=== PATIENT | female | born 1970 | race Caucasian/White ===

== ENCOUNTER 2020-03-11 00:20 | Outpatient (CLI) | payer OTHER, SELFPAY ==
[2020-03-11 18:05] LABS: SARS-CoV-2 RNA PCR Negative
== END 2020-03-11 00:21 | disposition home or self-care (01) ==
LOC: ANHCOVIDDT 00:20
PROVIDERS: PCP Emergency Medicine; Visit Provider Orthopaedic Surgery
DX: Z01.812 Encounter for preprocedural laboratory examination (principal); Z11.59 Encounter for screening for other viral diseases
CPT/HCPCS: 87635; C9803; U0003

== ENCOUNTER 2020-03-14 02:49 | Day surgery (SDC) | payer OTHER, SELFPAY ==
[2020-02-29 17:50] VITALS: BMI 41.1
[2020-03-14] VITALS (8 sets, daily range): BP systolic 97–143; BP diastolic 48–80; PULSE 55–75; RESP 12–18; TEMP 36.1–36.4; O2SAT 98–99
--- NOTE | 2020-03-14 08:56 | WPDANESEPPF ---
Anes - Initial Pre Proc Eval Procedure: Operation Date: 03/14/20 10:30 Proposed Procedures p Debridement Right Elbow Lateral Epicondyle - Enoch Ruggiero MD Date/Time: 03/14/20 08:56 Surgeon: Enoch Ruggiero MD Pre Op Diagnosis: rt elbow lateral epicondylitis Patient Data Age: 49 Gender: F Height: 5 ft 2 in Weight: 102.06 kg Allergies Allergy/AdvReac Type Severity Reaction Status Date / Time erythromycin base Allergy Severe Hives Verified 03/01/20 09:00 Home Medications Medication Instructions Recorded Confirmed Type fluoxetine 40 mg capsule 40 mg PO QPM #90 cap 01/12/20 03/01/20 Rx metoprolol succinate 25 mg 25 mg PO QPM #90 tablet 01/12/20 03/01/20 Rx tablet,extended release 24 hr rosuvastatin 10 mg tablet See Rx Instructions .ROUTE 02/09/20 03/01/20 Rx .COMPLEX #30 tablet Patient hx anesthesia problems: none Family hx anesthesia problems: none PMFSH Past Medical History Medical History Chronic headaches Depression Depression Fatigue Plantar fasciitis of right foot surgery 2019 Screening cholesterol level Surgical History Surgical History History of ankle surgery (~2007) History of hysterectomy (~2002) History of shoulder surgery (~2016) Previous section 1997 & 1998 Family History Family History Father Family history of malignant neoplasm Family history of lung cancer Family history of lymphoma Family history of malignant neoplasm of urinary bladder Diabetes mellitus Hypertension Sibling Family history of malignant neoplasm of cervix Family history of Hodgkin's lymphoma Breast cancer Grandparent Cerebrovascular accident Breast cancer Other Family history of cardiovascular disease Social History Social History Smoking status: Light tobacco smoker Tobacco type: cigarettes Second hand tobacco smoke exposure: No Smoking end date: 09/01/10 Additional smoking assessment comments: Smoked on and off socially since high school but completely quit in 2009. 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 Questions were solicited and answers provided to the satisfaction of the patient/family/POA.
[2020-03-14] MEDS: KETOROLAC 15 MG/ML VIAL (*BKC) IV PUSH (09:15)
[2020-03-14] MEDS: ACETAMINOPHEN 500 MG TABLET 1000 MG PO (09:15)
--- NOTE | 2020-03-14 10:20 | WPDHPUPDATE1 ---
History and Physical Update Update Date/Time: 03/14/20 10:20 History and Physical has been reviewed, including an updated exam of the patient. There are NO changes in the patient's condition. Risks, benefits, and alternatives have been discussed and questions answered. Patient agrees to proceed with procedure.
[2020-03-14] MEDS: ceFAZolin 2 GM/D5W 50 ML 2 GM/50 ML BAG IVPB (10:46)
[2020-03-14] MEDS: BUPIVACAINE/EPINEPHRINE 0.5% 10 ML VIAL INFILTRATE (11:17)
[2020-03-14] MEDS: LACTATED RINGERS 1,000 ML 30 ML IV CONT (11:35)
--- NOTE | 2020-03-14 11:45 | PM.PROC ---
Procedure Note - Detailed Date of procedure: 03/14/20 Pre-op diagnosis: rt elbow lateral epicondylitis Post-op diagnosis: same Procedure performed: Debridement right lateral epicondyle with partial epicondylectomy Description of procedure: The patient was identified and proper side identified. She was taken to the operating room and transferred to the or table placing her supine taking care to pad her torso and extremities. After general anesthetic induction and intubation, a nonsterile tourniquet was placed high on the right arm. Right upper extremity was prepped and draped in the usual sterile fashion. Several cc of 0.5% Marcaine and epinephrine solution was injected into the subcutaneous tissue in over the right lateral epicondyle. The extremity was exsanguinated tourniquet was inflated to 250 mmHg remaining up for approximately 23 minutes. Longitudinal incision was made over the tendinous origin and subcutaneous tissue sharply dissected down to the epicondyle. The common extensor origin was released off the epicondyle and then debrided removing any degenerative tissue. Prominent portion of the epicondyle was removed with a rongeur. The wound was irrigated with sterile antibiotic solution. Tendon edges were reapproximated [id number] with 3 0 Monocryl suture. The deeper layers the subcu reapproximated with 3 0 Monocryl. Skin reapproximated with 3 0 V lock and tissue adhesive. Sterile dressing was applied. Tourniquet is released. She tolerated the procedure well. She was awakened extubated taken to recovery area in stable condition. There were no known intraoperative complications. Estimated blood loss is negligible. Surgeon: Enoch Ruggiero MD Estimated blood loss (mL): 3 Tourniquet time (min): 23 Drains: No Packing: No Pathology: none sent Complications: No immediate complications Condition: stable Disposition: PACU
== END 2020-03-14 13:12 | disposition home or self-care (01) ==
PROVIDERS: PCP Emergency Medicine; Visit Provider Orthopaedic Surgery
PROC: (CPT 24359; principal; 2020-03-14 10:30)
DX: M77.11 Lateral epicondylitis, right elbow (principal); F32.9 Major depressive disorder, single episode, unspecified; Z87.891 Personal history of nicotine dependence; E66.01 Morbid (severe) obesity due to excess calories; Z68.41 Body mass index [BMI] 40.0-44.9, adult
CPT/HCPCS: 24359; 87635; A9270; C9803; J0690; J1100; J1885; J2250; J2405; J2704; J3010; J7120; U0003

== ENCOUNTER 2020-05-30 15:33 | Outpatient (CLI) | payer OTHER, SELFPAY ==
--- NOTE | ~2020-05-30 | MM_ITS ---
EXAMINATION: MM screening kaycee BI w dinora HISTORY: Screening mammogram, family history of breast cancer in her sister. TECHNIQUE: Craniocaudal and mediolateral oblique 3-D tomosynthesis images were obtained and synthetic 2-D images were generated. CAD analysis was submitted and interpreted. COMPARISON: 10/16/2018, 10/14/2018, 10/04/2017, 06/17/2013, 06/09/2013 BREAST PARENCHYMAL COMPOSITION: There are scattered areas of fibroglandular density. FINDINGS: There is no evidence of suspicious mass, calcification, or architectural distortion to sugg est malignancy in either breast. There has been no suspicious interval change. IMPRESSION: 1. No mammographic evidence of malignancy. 2. Recommend routine screening mammography in one year. BI-RADS Category 1: Negative Reviewed, dictated and finalized at location A.
== END 2020-05-30 15:34 | disposition home or self-care (01) ==
LOC: ANHIMG 15:36
PROVIDERS: PCP Emergency Medicine; Visit Provider Emergency Medicine
DX: Z12.31 Encounter for screening mammogram for malignant neoplasm of breast (principal)
CPT/HCPCS: 77063; 77067

== ENCOUNTER 2020-11-18 08:17 | Outpatient (CLI) | payer OTHER, SELFPAY | END 2020-11-18 08:18 | disposition home or self-care (01) | LOC: ANHCOVIDVC 08:17 | PROVIDERS: PCP Emergency Medicine | DX: Z23 Encounter for immunization (principal) | CPT/HCPCS: 0001A; 91300 ==

== ENCOUNTER 2020-12-09 08:14 | Outpatient (CLI) | payer OTHER, SELFPAY | END 2020-12-09 08:15 | disposition home or self-care (01) | LOC: ANHCOVIDVC 08:14 | PROVIDERS: PCP Emergency Medicine | DX: Z23 Encounter for immunization (principal) | CPT/HCPCS: 0002A; 91300 ==

== ENCOUNTER 2021-02-28 11:40 | Outpatient (CLI) | payer OTHER, SELFPAY ==
--- NOTE | ~2021-02-28 | US_ITS ---
EXAMINATION: US venous doppler [facility] DATE: 02/28/2021 12:06 INDICATION: Left lower limb pain TECHNIQUE: Aguiar scale images without and with compression and Doppler images of the left lower extrem ity veins were obtained. COMPARISON: None FINDINGS: The left common femoral vein, profunda femoral vein, femoral vein, popliteal vein, peroneal trunk, posterior tibial veins, and greater saphenous vein are patent. A 3.4 cm Warner's cyst is noted . IMPRESSION: 1. Patent left lower extremity veins. No evidence of deep venous thrombosis. Reviewed, dictated and finalized at location B.
== END 2021-02-28 11:41 | disposition home or self-care (01) ==
LOC: ANHIMG 11:47
PROVIDERS: PCP Emergency Medicine; Visit Provider Emergency Medicine
DX: I73.9 Peripheral vascular disease, unspecified (principal); M79.605 Pain in left leg; R60.9 Edema, unspecified
CPT/HCPCS: 93971

== ENCOUNTER 2021-11-30 17:37 | Outpatient (CLI) | payer OTHER, SELFPAY ==
--- NOTE | ~2021-11-30 | MM_ITS ---
EXAMINATION: MM screening kaycee BI w dinora HISTORY: Screening mammogram TECHNIQUE: Craniocaudal and mediolateral oblique 3-D tomosynthesis images were obtained and synthetic 2-D images were generated. CAD analysis was submitted and interpreted. COMPARISON: 05/22/2020 bilateral screening mammogram October 16, 2018 diagnostic left mammogram and limited left breast ultrasound October 14, 2018, October 04, 2017 bilateral screening mammogram examinations BREAST PARENCHYMAL COMPOSITION: There are scattered areas of fibroglandular density. FINDINGS: There is no evidence of suspicious mass, calcification, or architectural distortion to sugg est malignancy in either breast. There has been no suspicious interval change. IMPRESSION: 1. No mammographic evidence of malignancy. 2. Recommend routine screening mammography in one year. BI-RADS Category 1: Negative Reviewed, dictated and finalized at location A.
== END 2021-11-30 17:38 | disposition home or self-care (01) ==
PROVIDERS: PCP Emergency Medicine; Visit Provider Emergency Medicine
DX: Z12.31 Encounter for screening mammogram for malignant neoplasm of breast (principal)
CPT/HCPCS: 77063; 77067

== ENCOUNTER 2022-08-30 08:55 | Emergency (ER) | payer OTHER, SELFPAY ==
--- NOTE | 2022-08-30 09:00 | ED.URI ---
HPI - URI/Sore Throat General Chief Complaint: Upper Respiratory Infection Stated Complaint: Sinus Time Seen by Provider: 08/30/22 09:10 Source: patient Mode of arrival: ambulatory Limitations: no limitations History of Present Illness HPI Narrative: Marta is a 52-year-old female patient presenting to clinic today with complaints of sinus congestion and drainage, body aches, chills, and sore throat x2 days. She reports No known fever. No known exposure to anybody with COVID, flu, or strep. Reports that she had COVID back in December and RSV in June. MD elicited complaint: sore throat and nasal congestion Related Data Allergies Allergy/AdvReac Type Severity Reaction Status Date / Time erythromycin base Allergy Severe Hives Verified 04/26/22 14:32 Review of Systems Review of Systems: Pertinent positives per HPI. Patient denies any fever, rash, headache, visual changes, dizziness, shortness of breath, chest pain, palpitations, nausea, vomiting, diarrhea, constipation, abdominal pain, or any urinary issues. [facility] Past Medical History Medical History Arthritis Arthritis of carpometacarpal (CMC) joint of right thumb BMI 39.0-39.9,adult Body mass index [BMI] 36.0-36.9, adult (07/04/16) Carpal tunnel syndrome, bilateral Chronic back pain Chronic headaches Chronic neck pain Chronic shoulder pain Degenerative arthritis of knee, bilateral Depression Depression Disorder of skin and subcutaneous tissue Fatigue HTN (hypertension) Macromastia Other chronic pain Paresthesia of skin Plantar fasciitis of right foot surgery 2019 Surgical History Surgical History History of ankle surgery (~2007) left History of bladder surgery bladder mesh History of hysterectomy (~2002) 2003 History of laparoscopy for endometriosis History of shoulder surgery (~2016) right Lateral epicondylitis, right elbow debridement March 2020 Previous section 1997 & 1998 Family History Family History Father Family history of malignant neoplasm Family history of lung cancer Family history of lymphoma Family history of malignant neoplasm of urinary bladder Diabetes mellitus Hypertension Heart problem Sibling Family history of malignant neoplasm of cervix Family history of Hodgkin's lymphoma Breast cancer Diabetes mellitus Hypertension Depression with anxiety Grandparent Cerebrovascular accident Breast cancer Mother Hypertension Other Family history of cardiovascular disease Social History Social History Smoking status: Former smoker Tobacco type: cigarettes Second hand tobacco smoke exposure: No Smoking end date: 09/01/10 Additional smoking assessment comments: Smoked on and off socially since high school but completely quit in 2009. 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 There is no relevant family history pertinent to the patient complaint. Exam Narrative: General: Well-developed, well nourished, in no apparent distress Head: Normocephalic, atraumatic Eyes: Pupils equally round and reactive to light bilaterally, EOM intact, sclera and conjunctive clear, no discharge, lids normal Ears: TMs intact and clear, ear canals clear, no drainage, grossly hearing normal. Nose: Nares patent, clear nasal discharge, mild inflammation, no sinus tenderness. Mouth: Oral pharynx without lesions or masses, good dentition
[2022-08-30 09:08] VITALS: BP 146/90; PULSE 70; RESP 16; TEMP 36.8; O2SAT 99
== END 2022-08-30 09:48 | disposition home or self-care (01) ==
PROVIDERS: Emergency Provider Nurse Practitioner Family; PCP Emergency Medicine
DX: J06.9 Acute upper respiratory infection, unspecified (principal); B34.9 Viral infection, unspecified; J02.9 Acute pharyngitis, unspecified; Z20.822 Contact with and (suspected) exposure to COVID-19; Z87.891 Personal history of nicotine dependence; I10 Essential (primary) hypertension; M17.0 Bilateral primary osteoarthritis of knee; M18.11 Unilateral primary osteoarthritis of first carpometacarpal joint, right hand
CPT/HCPCS: 87426; 87804; 87880; 99213; C9803; G0463

== ENCOUNTER 2022-09-20 13:47 | Outpatient (CLI) | payer OTHER, SELFPAY ==
--- NOTE | ~2022-09-20 | CT_ITS ---
EXAMINATION: CT abdomen pelvis w con DATE: 09/20/2022 14:44 INDICATION: Left abdominal pain. TECHNIQUE: Computed tomography (CT) of the abdomen and pelvis was performed with 100 mL Omnipaque 350 intravenous contrast. Automated exposure control and iterative reconstruction technique were employe d. The dose-length product was 1352.88 mGy-cm. COMPARISON: None. FINDINGS: The visualized portions of the lung bases demonstrate mild atelectasis. No pleural effusion . The heart size is normal. No pericardial effusion. The liver, gallbladder, spleen, pancreas, adrena l glands, and kidneys are normal. There is fat stranding around an epiploic appendage of proximal sig moid colon, consistent with epiploic appendagitis. There are no dilated loops of bowel. The appendix is normal. There are no pathologically enlarged lymph nodes. There is no free intraperitoneal fluid. There is mild thoracic spondylosis and severe lower lumbar spondylosis. IMPRESSION: 1. Epiploic appendagitis of proximal sigmoid colon. Reviewed, dictated and finalized at location A. [employer] PA[employer] CLERK
[2022-09-20 14:38] LABS: Estimated Glomerular Filt Rate > 60
== END 2022-09-20 13:48 | disposition home or self-care (01) ==
PROVIDERS: PCP Emergency Medicine; Visit Provider Emergency Medicine
DX: R10.9 Unspecified abdominal pain (principal); K63.89 Other specified diseases of intestine
CPT/HCPCS: 74177; Q9967

== ENCOUNTER 2022-09-20 15:04 | Emergency (ER) | payer OTHER, SELFPAY ==
[2022-09-20 15:53] VITALS: BP 149/106; PULSE 61; RESP 20; TEMP 36.6; O2SAT 99
[2022-09-20 18:52] VITALS: BP 155/92; PULSE 68; RESP 20; O2SAT 99
[2022-09-20 19:29] LABS: Basophils Percent Auto 0.6 % (0.2-1.2); Eosinophils Absolute Auto 0.1 K/mm3 (0-0.3); Eosinophils Percent Auto 1.7 % (0-4.4); Hematocrit 40.4 % (37.0-47.0); Hemoglobin 13.5 g/dL (12.0-15.0); Immature Granulocyte Absolute 0.02 K/mm3 (0.00-0.031); Immature Granulocyte Percent A 0.3 % (0-0.5); Lymphocytes Absolute Auto 2.98 K/mm3 (0.9-3.2); Lymphocytes Percent Auto 42.4 % (18.3-44.2); Mean Corpuscular HGB Conc 33.4 g/dl (32-36); Mean Corpuscular Hemoglobin 29.2 pg (26-34); Mean Corpuscular Volume 87.4 fl (80-100); Mean Platelet Volume 10.1 fl (7.4-10.4); Monocytes Absolute Auto 0.5 K/mm3 (0.1-0.6); Monocytes Percent Auto 7.4 % (2.6-8.5); Neutrophils Absolute Auto 3.4 K/mm3 (1.3-6.7); Neutrophils Percent Auto 47.6 % (45.5-73.1); Platelet Count Result 282 k/mm3 (150-375); Red Blood Count 4.62 M/mm3 (4.2-5.4); Red Cell Distribution Width 12.9 % (11.5-14.5)
--- NOTE | 2022-09-20 19:31 | ED.ABDPAIN ---
HPI - Abdominal Pain General Chief Complaint: Abdominal Pain Stated Complaint: lower pelvic pain Time Seen by Provider: 09/20/22 18:55 Source: patient and old records reviewed Mode of arrival: ambulatory Limitations: no limitations History of Present Illness HPI narrative: Patient is a 52 y/o female who presents to the ED with c/o LLQ abdominal pain. Patient reports having pain since Saturday. The pain became worse on Saturday and has been fairly constant since then. Patient has been taking ibuprofen with some relief. She states the pain feels like a pressure, occasionally sharp with certain movements. Patient had an outpatient CT scan of her abdomen pelvis performed today and was contacted by her primary care doctor to come to the ED after seeing the results. Patient otherwise denies any other symptoms, denies fever, nausea, constipation, rectal bleeding, melena, chest pain, difficulty breathing. Related Data Allergies Allergy/AdvReac Type Severity Reaction Status Date / Time erythromycin base Allergy Severe Hives Verified 09/19/22 16:13 Review of Systems Review of Systems: CONSTITUTIONAL: Denies fever, chills, or sweats. CARDIOVASCULAR: Denies chest pain, palpitations, or edema. RESPIRATORY: Denies cough or dyspnea. GASTROINTESTINAL: See HPI. GENITOURINARY: Denies dysuria or hematuria. SKIN: Denies rash or itching. MUSCULOSKELETAL: Denies back pain, joint pain, or myalgia. All systems reviewed & are unremarkable except as noted in HPI and below PMFSH Past Medical History Medical History (Updated 09/20/22 @ 19:52 by Marj Burks PA-C) Arthritis Arthritis of carpometacarpal (CMC) joint of right thumb BMI 39.0-39.9,adult Body mass index [BMI] 36.0-36.9, adult (07/04/16) Carpal tunnel syndrome, bilateral Chronic back pain Chronic headaches Chronic neck pain Chronic shoulder pain Degenerative arthritis of knee, bilateral Depression Depression Disorder of skin and subcutaneous tissue Endometriosis Fatigue HTN (hypertension) Macromastia Other chronic pain Paresthesia of skin Plantar fasciitis of right foot surgery 2019 Surgical History Surgical History History of ankle surgery (~2007) left History of bladder surgery bladder mesh History of hysterectomy (~2002) 2003 History of laparoscopy for endometriosis History of shoulder surgery (~2017) right Lateral epicondylitis, right elbow debridement March 2020 Previous section 1997 & 1998 Family History Family History Father Family history of malignant neoplasm Family history of lung cancer Family history of lymphoma Family history of malignant neoplasm of urinary bladder Diabetes mellitus Hypertension Heart problem Sibling Family history of malignant neoplasm of cervix Family history of Hodgkin's lymphoma Breast cancer Diabetes mellitus Hypertension Depression with anxiety Grandparent Cerebrovascular accident Breast cancer Mother Hypertension Other Family history of cardiovascular disease Social History Social History Smoking status: Former smoker Tobacco type: cigarettes Second hand tobacco smoke exposure: No Smoking end date: 09/01/10 Additional smoking assessment comments: Smoked on and off socially since high school but completely quit in 2009. 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 HEAD: Normocephalic, atraumatic. NECK: Supple. No adenopathy, no masses. RESPIRATORY: Airway patent, respirations nonlabored. Clear to
[2022-09-20 19:41] LABS: Alanine Aminotransferase 29 U/L (6-35); Albumin Level 4.4 g/dL (3.5-5.1); Alkaline Phosphatase 67 U/L (38-126); Anion Gap 7 mmol/L (8-16); Aspartate Amino Transferase 31 U/L (14-36); Bilirubin,Total 1.2 mg/dL (0.2-1.3); Blood Urea Nitrogen 9 mg/dL (7-17); Calcium 9.3 mg/dL (8.4-10.2); Carbon Dioxide 29 mmol/L (22-30); Chloride 102 mmol/L (98-107); Estimated CRCL calculation 92 ml/min; Estimated Glomerular Filt Rate > 60; Glucose 88 mg/dL (65-110); Lipase 67 U/L (23-300); Potassium 4.1 mmol/L (3.4-5.0); Sodium 138 mmol/L (137-145)
[2022-09-20] MEDS: KETOROLAC 30 MG/ML VIAL (*BKC) IV PUSH (19:50)
[2022-09-20 20:33] VITALS: BP 133/71; PULSE 72; RESP 18; O2SAT 98
== END 2022-09-20 20:34 | disposition home or self-care (01) ==
PROVIDERS: Emergency Medicine; Emergency Provider Physician Assistant; PCP Emergency Medicine
DX: K63.89 Other specified diseases of intestine (principal); I10 Essential (primary) hypertension; M19.90 Unspecified osteoarthritis, unspecified site; M18.9 Osteoarthritis of first carpometacarpal joint, unspecified; M17.0 Bilateral primary osteoarthritis of knee; N80.9 Endometriosis, unspecified; Z90.710 Acquired absence of both cervix and uterus; Z87.891 Personal history of nicotine dependence
CPT/HCPCS: 36415; 74177; 80053; 83690; 85025; 96374; 99284; J1885; Q9967

== ENCOUNTER 2023-02-06 09:30 | Outpatient (CLI) | payer OTHER, SELFPAY ==
--- NOTE | 2023-02-06 10:16 | EST_ITS ---
Patient Info Name: Marta Piper Age: 52 years : 1970 Gender: Female Ht: 62 in Wt: 225 lbs BSA: 2.17 m2 HR: 65 bpm BP: 133 / 79 mmHg Heart Rhythm: Sinus Rhythm Exam Date: 02/06/2023 10:25 AM Exam Location: [facility] Stress Patient Status: Outpatient Admit Date: 02/06/2023 Staff Ordering Physician: Guido Tillman MD Attending Provider: Guido Tillman MD Exercise Technologist: Marcy Fatima CT Exercise Physician: Amos Rand DO Exam Type: CA stress test treadmill Study Info Indications R06.09 - Other forms of dyspnea A treadmill exercise stress test was performed. Summary 1. 1. Negative Addi exercise stress test for ischemic ST changes by ECG criteria. 2. 2. Good functional capacity, achieving 8.9 METs of workload. 3. 3. Appropriate HR response to exercise. 4. 4. Appropriate HR recovery at 1 minute post exercise. 5. 5. No imaging with stress testing. 6. 6. Patient informed of the above results. Protocol: Addi Stress ECG Details Stage: REST Duration (min): 3 min : 2 sec Speed (mph): 0.0 Grade (%): 0 HR (bpm): 75 SBP (mmHg): 133 DBP (mmHg): 79 METS: --- Stage: REST Duration (min): 6 min : 41 sec Speed (mph): 0.0 Grade (%): 0 HR (bpm): 75 SBP (mmHg): 133 DBP (mmHg): 79 METS: --- Stage: STAGE 1 Duration (min): 1 min : 0 sec Speed (mph): 1.7 Grade (%): 10 HR (bpm): 106 SBP (mmHg): 133 DBP (mmHg): 79 METS: --- Stage: STAGE 1 Duration (min): 2 min : 0 sec Speed (mph): 1.7 Grade (%): 10 HR (bpm): 118 SBP (mmHg): 133 DBP (mmHg): 79 METS: --- Stage: STAGE 1 Duration (min): 3 min : 0 sec Speed (mph): 1.7 Grade (%): 10 HR (bpm): 123 SBP (mmHg): 132 DBP (mmHg): 69 METS: --- Stage: STAGE 2 Duration (min): 1 min : 0 sec Speed (mph): 2.5 Grade (%): 12 HR (bpm): 135 SBP (mmHg): 132 DBP (mmHg): 69 METS: --- Stage: STAGE 2 Duration (min): 2 min : 0 sec Speed (mph): 2.5 Grade (%): 12 HR (bpm): 141 SBP (mmHg): 161 DBP (mmHg): 73 METS: --- Stage: STAGE 2 Duration (min): 3 min : 0 sec Speed (mph): 2.5 Grade (%): 12 HR (bpm): 143 SBP (mmHg): 161 DBP (mmHg): 73 METS: --- Stage: STAGE 3 Duration (min): 1 min : 0 sec Speed (mph): 3.4 Grade (%): 14 HR (bpm): 150 SBP (mmHg): 162 DBP (mmHg): 65 METS: --- Stage: STAGE 3 Duration (min): 1 min : 0 sec Speed (mph): 3.4 Grade (%): 14 HR (bpm): 150 SBP (mmHg): 162 DBP (mmHg): 65 METS: --- Stage: RECOVERY Duration (min): 0 min : 59 sec Speed (mph): 0.0 Grade (%): 0 HR (bpm): 122 SBP (mmHg): 162 DBP (mmHg): 65 METS: --- Stage: RECOVERY Duration (min): 1 min : 59 sec Speed (mph): 0.0 Grade (%): 0 HR (bpm): 94 SBP (mmHg): 162 DBP (mmHg): 65 METS: --- Stage: RECOVERY Duration (min): 2 min : 59 sec Speed (mph): 0.0 Grade (%): 0 HR (bpm): 90 SBP (mmHg): 130 DBP (mmHg
== END 2023-02-06 09:31 | disposition home or self-care (01) ==
PROVIDERS: PCP Emergency Medicine; Visit Provider Emergency Medicine
DX: R06.09 Other forms of dyspnea (principal)
CPT/HCPCS: 93017

== ENCOUNTER 2023-03-04 00:25 | Day surgery (SDC) | payer OTHER, SELFPAY ==
[2023-02-26 14:46] VITALS: BMI 41.2
--- NOTE | 2023-02-26 14:47 | SUR.PREOP ---
Report to the Outpatient Waiting Room, entrance under the green pavilion located off [facility], at time _0600 on date _03/04/23 . Planned Procedure Time: _0730 . Time changes happen often and if your time is changed the preop area will call you the afternoon before. - You and your visitor will be asked to self-screen and do not enter if you have any COVID symptoms. - A mask is optional within the hospital at this time. Patients may have clear liquids (water, carbonated beverages, clear teas, apple juice) until 3 hours prior to surgery with a maximum of 20 ounces. - No food from midnight until time of surgery - Infants may have breast milk until 4 hours before surgery, formula 6 hours prior to surgery. - Children will be allowed to drink immediately following surgery. If applicable, please bring a bottle or sippy cup to assist with drinking. Juice, water, soda, and popsicles are readily available. For infants on formula, please bring formula the day of surgery. Pacifiers are allowed. Take the following medications with a SIP of water the morning of surgery: ___metoprolol,fluoxetine DO NOT STOP ANY OF YOUR OTHER PRESCRIPTION MEDICATIONS PRIOR TO SURGERY ?EXCEPT THE FOLLOWING Medications to discontinue per physician ____n/a Date to take last dose__n/a Please no make-up, nail indonesian, hairspray, perfume, deodorant, or body powder the day of surgery. No jewelry (including any body piercings) or valuables the day of surgery, leave them at home. Please take a shower or bath the night before, or the morning of, surgery with an antibacterial soap. Wear comfortable, loose fitting clothing. Children are encouraged to wear pajamas. - Jewelry must be removed prior to entering the operating room. Rings and piercings that are not removed may be cut off. - The hospital will not accept responsibility for valuables. - Please leave all valuables, including medications, at home the day of surgery. If you are going home after surgery, a licensed lifter driver must drive you home. - NO public transportation without another adult if you receive anesthesia. - We recommend that an adult stay with you for 24 hours following discharge. - We also recommend that you do not drive, make important decision, drink alcoholic beverages, or take any drugs that were not prescribed by your health care provider for at least 24 hours after your discharge time. For Pediatric surgeries, we recommend two adults accompany the child home. Follow any additional instructions given to you from your surgeon. If you or anyone in your household have experienced Covid symptoms in the past week, please notify your surgeon or the nurse liaison at the phone number below for possible testing. Telephone instructions given to _mc drew and asked if any additional questions and then verbalized understanding. Patient advised to call surgeon office or pre surgery nurse liaison [phone] if any additional questions.
[2023-03-04] VITALS (9 sets, daily range): BP systolic 104–125; BP diastolic 63–78; PULSE 68–76; RESP 12–20; TEMP 36.6–36.9; O2SAT 93–97
--- NOTE | ~2023-03-04 | XR_ITS ---
EXAMINATION: XR hand RT min 3V DATE: 03/04/2023 10:35 INDICATION: Unilateral primary osteoarthritis of first carpometacarpal joint. Postop. TECHNIQUE: 3 views of right hand were obtained. COMPARISON: Right hand radiographs 03/14/2022 FINDINGS: Trapezium is absent. No fracture. There is mild osteoarthritis of first metacarpophalangeal joint. IMPRESSION: 1. Trapezium resection. Reviewed, dictated and finalized at location A. IMPRESSION: 1. Trapezium resection.
[2023-03-04] MEDS: ACETAMINOPHEN 500 MG TABLET 1000 MG PO (07:40)
--- NOTE | 2023-03-04 07:41 | WPDANESEPPF ---
Anes - Initial Pre Proc Eval Procedure: Operation Date: 03/04/23 09:00 Proposed Procedures p Right Thumb Carpal Metacarpal Arthroplasty - Enoch Ruggiero MD Date/Time: 03/04/23 07:41 Surgeon: Enoch Ruggiero MD Pre Op Diagnosis: right thumb cmc arthritis Patient Data Age: 52 Gender: F Height: 1.57 m Weight: 106 kg Allergies Allergy/AdvReac Type Severity Reaction Status Date / Time erythromycin base Allergy Severe Hives Verified 03/04/23 07:10 Home Medications Medication Instructions Recorded Confirmed Type rosuvastatin 10 mg tablet See Rx Instructions .Route 09/04/22 02/27/23 Rx .COMPLEX #90 tabs metoprolol succinate 25 mg See Rx Instructions .Route 01/30/23 02/27/23 Rx tablet,extended release 24 hr .COMPLEX #90 tabs pantoprazole 40 mg tablet,delayed See Rx Instructions .Route 01/30/23 02/27/23 Rx release .COMPLEX #90 tabs fluoxetine 40 mg capsule See Rx Instructions .Route 02/14/23 02/27/23 Rx .COMPLEX #90 caps Patient hx anesthesia problems: none Family hx anesthesia problems: none Results Review: All pre-operative results and documents have been reviewed as part of the pre-operative evaluation. [facility] Past Medical History Medical History (Updated 03/04/23 @ 07:42 by Quirino Carey DO) Anxiety Arthritis Arthritis of carpometacarpal (CMC) joint of right thumb BMI 39.0-39.9,adult Body mass index [BMI] 36.0-36.9, adult (07/04/16) Carpal tunnel syndrome, bilateral Chronic back pain Chronic headaches Chronic neck pain Chronic shoulder pain Degenerative arthritis of knee, bilateral Depression Depression Disorder of skin and subcutaneous tissue Endometriosis Fatigue HTN (hypertension) Macromastia Other chronic pain Paresthesia of skin Plantar fasciitis of right foot surgery 2019 Surgical History Surgical History History of ankle surgery (~2007) left History of bladder surgery bladder mesh History of hysterectomy (~2002) 2002 History of laparoscopy for endometriosis History of shoulder surgery (~2016) right Lateral epicondylitis, right elbow debridement March 2020 Previous section 1997 & 1998 Family History Family History Father Family history of malignant neoplasm Family history of lung cancer Family history of lymphoma Family history of malignant neoplasm of urinary bladder Diabetes mellitus Hypertension Heart problem Sibling Family history of malignant neoplasm of cervix Family history of Hodgkin's lymphoma Breast cancer Diabetes mellitus Hypertension Depression with anxiety Grandparent Cerebrovascular accident Breast cancer Mother Hypertension Other Family history of cardiovascular disease Social History Social History Smoking status: Former smoker Tobacco type: cigarettes Second hand tobacco smoke exposure: No Smoking end date: 09/02/12 Additional smoking assessment comments: 1ppw x10 years Alcohol intake: current Drinks per week: 2 Alcohol use details: socially Substance use: never Lack of Transportation: No Lack of Food: Never True Current Housing: I Have Housing Concerned About Future Housing: No Difficulty Paying Gas/Electric Bills: No Difficulty Paying for Meds: No Currently Unemployed: No Education: Trade/Vocational Certificate Difficulty w/ Childcare or Family Care: No Living arrangements: with family Occupation/Education: occupation 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
[2023-03-04] MEDS: KETOROLAC 15 MG/ML VIAL (*BKC) IV PUSH (07:42)
[2023-03-04] MEDS: LACTATED RINGERS 1,000 ML 30 ML IV CONT (07:54)
--- NOTE | 2023-03-04 08:28 | WPDHPUPDATE1 ---
History and Physical Update Update Date/Time: 03/04/23 08:28 History and Physical has been reviewed, including an updated exam of the patient. There are NO changes in the patient's condition. Risks, benefits, and alternatives have been discussed and questions answered. Patient agrees to proceed with procedure.
[2023-03-04] MEDS: ceFAZolin 2 GM/D5W 50 ML 2 GM/50 ML BAG IVPB (08:47)
--- NOTE | 2023-03-04 08:49 | WPDANESPNB ---
Anes - Peripheral Nerve Block Date/Time: 03/04/23 08:49 I have discussed with the patient/family/POA the placement of a peripheral nerve block for post-operative pain management, including associated risks, benefits, complications, and side effects. Alternative methods of post-operative analgesia were detailed. Questions were solicited and answers provided to the satisfaction of the patient/family/POA. Time-Out: A pre-procedural Time-Out was completed immediately before starting the procedure and confirmed: Patient Identification, Site, Procedure, Patient Position and the Availability of Requisite Equipment. Clinical Indications: Acute post-operative pain management requested by the operative surgeon. Nerve Block Insertion Note Anes-nerve block: supraclavicular right Patient position: supine Skin prep: chlorhexidine Needle: 22 gauge, stimulating, insulated echogenic needle. Needle length: 50 mm Technique: ultrasound Injectate: bupivacaine 0.5% with epi 5 mcg/ml (30cc- no epi) Observations: tolerated well Complications: none Procedure start time:: 839 Procedure end time:: 844
--- NOTE | 2023-03-04 10:26 | P.OP_ITS ---
Procedure Note - Detailed Date of Procedure 03/04/23 Pre-op Diagnosis right thumb cmc arthritis Post-op Diagnosis Same Procedure Performed right thumb CMC suspension arthroplasty Surgeon Enoch Ruggiero MD Admissions Recruiter Petros Miner Anesthesia General and Regional Description of Procedure The patient was identified proper site identified. In the preop holding area the anesthesia team performed a right upper extremity block. She was then taken to the operating room transferred to the OR table placing her supine taking care to pad the torso and extremities. After general anesthetic induction and intubation, a nonsterile tourniquet was placed high on the right arm. Her right upper extremity was prepped and draped in usual sterile fashion. Extremity was exsanguinated and tourniquet was inflated to 250 mmHg remaining up for approximately 53 minutes. A longitudinal incision was made over the FCR tendon curving radially at the base of the thenar musculature. Subcutaneous tissue bluntly dissected protecting neurovascular structures. A slip of the APL which inserted into the thenar musculature was released and marked for later repair. The thenar musculature was elevated up off of the carpus and the trapezium identified. While protecting the FCR, a trapeziectomy was performed. The a ulnar-sided distally-based 8 cm slip of FCR was then developed hand used to create a sling weaving the tendon slip between the FCR tendon and the APL tendon securing it to itself with 3-0 Ethibond suture. The EPL tendon was advanced on itself and also secured with 3-0 Ethibond suture seating the sling in the trapeziectomy site. This allowed the thumb to sit very nicely in a position of function. The EPB tendon was then reefed also with 3-0 Ethibond taking up the slack in that structure. The wound was irrigated with sterile antibiotic solution. The wrist capsule and thenar musculature were tacked back down with 4-0 Monocryl. The slip of the EPL was reattached to the thenar musculature with 3-0 Ethibond. The subcutaneous tissue was reapproximated with 4-0 Monocryl and then skin with 4-0 Prolene running subcuticular stitch. Steri-Strips were applied. Sterile dressings applied and the tourniquet was released. Well-padded thumb spica splint was fashioned. The patient tolerated procedure well . She was awakened extubated and taken to recovery area in stable condition. There were no known intraoperative complications. Estimated blood loss was negligible. Perioperative antibiotics were administered. Estimated Blood Loss 5 Drains No Packing No Pathology None sent Complications No immediate complications Condition Stable Disposition PACU [facility] Billing Surgery - Charge Forward: Surgery Billing ([id number])
== END 2023-03-04 12:00 | disposition home or self-care (01) ==
PROVIDERS: PCP Emergency Medicine; Visit Provider Orthopaedic Surgery
PROC: (CPT 25447; principal; 2023-03-04 09:00)
DX: M18.11 Unilateral primary osteoarthritis of first carpometacarpal joint, right hand (principal); G89.18 Other acute postprocedural pain; I10 Essential (primary) hypertension; F32.A Depression, unspecified; F41.9 Anxiety disorder, unspecified; Z87.891 Personal history of nicotine dependence; E66.01 Morbid (severe) obesity due to excess calories; Z68.41 Body mass index [BMI] 40.0-44.9, adult
CPT/HCPCS: 25447; 64415; 73130; A9270; J0690; J1885; J2250; J2405; J2704; J3010; J7120

== ENCOUNTER 2023-04-17 07:30 | Outpatient (RCR) | payer OTHER, SELFPAY ==
--- NOTE | 2023-03-27 08:20 | OTOPEVAL1 ---
Assessment and note entered by Gab He, MOISES/Sander, CHT Evaluation Information Assessment Status Evaluation Diagnosis s/p right 1st CMC arthroplasty Onset 03/04/23 Subjective Information Patient is a right hand dominant female who underwent 1st CMC arthroplasty ~3 weeks ago. She went back to work 1 week after surgery. 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 Patient reports heavily favoring her left hand for ADLs, driving, etc. Reported Pain Level Pain Score 0: Self Report Additional Pain Score Comments Patient reports no pain . Describes it more as sore . Assessment OT Clinical Summary Patient referred to outpatient OT s/p right 1st CMC arthroplasty with a decline in right hand use secondary to limitations with weakness, stiffness, and post operative swelling. Skilled OT indicated for HEP instruction and progression, therapeutic exercise, therapeutic activities, modalities, and scar management education to facilitate optimal use of her right, dominant hand. Plan of Care Interventions Therapeutic Exercise,Manual Therapy,Neuro Re- education,Therapeutic Activities,Ultrasound, Paraffin OT Services Indicated Yes Treatment Frequency and 1x/week for 4 weeks Duration These treatments will address the objective and functional deficits as defined above. The patient will be advanced safely and appropriately in order for the patient to progress towards his/her prior level of function. Additional exercises will be introduced and as well as a comprehensive home exercise program upon discharge, if needed, ?to ensure carryover of functional gains achieved in the clinic. This treatment plan has been reviewed and agreement upon by the patient.
--- NOTE | 2023-03-27 08:20 | OPREHPOC ---
Outpatient Therapy Plan of Care This is a Multidisciplinary Plan of Care that may contain components documented by all disciplines (PT, OT, and ST.) OT Problem 1 OT Problem #1 Knowledge Deficit OT Goal 1 Goal 1. Patient to be independent with all instructed materials. Target Visit 5 OT Problem 2 OT Problem #2 Impaired Range of Motion OT Goal 1 Goal Increase active ROM of the right UE: 1. Patient to be able to touch the base of digit V with the thumb. 2. Patient to incresae wrist flexion to 55 degrees . Target Visit 5 OT Problem 3 OT Problem #3 Impaired Strength OT Goal 1 Goal Hold strengthening until 6 weeks post op: 1. Patient to be able to complete light baseball glove shaper/pinch strengthening with yellow theraputty x5 minutes without reports of pain. Target Visit 5
--- NOTE | 2023-04-17 09:11 | OTOPDC ---
Assessment and note entered by Gab He, OTR/L, CHT Evaluation Information Assessment Status Discharge Diagnosis s/p right 1st CMC arthroplasty Onset 03/04/23 Subjective Information Patient is a right hand dominant female who underwent 1st CMC arthroplasty 6 weeks ago. She reports feeling ready to go without her brace, feeling more confident to use her hand for light tasks. Reports feeling weak. Overall she is trying to get used to using this hand again, but reports she is not as hesitant to try to use it. Wrist, finger, and thumb ROM has progressed to functional limits. (R) guest house manager/pinch strengths as follows: - guest house manager 38.67 lbs - lateral 0.67 lbs. - palmar 1.5 lbs. - tip 1.67 lbs. (L) guest house manager/pinch strengths as follows: - guest house manager 58.33 lbs - lateral 8.33 lbs. - palmar 10.67 lbs. - tip 6.33 lbs. Reported Pain Level Pain Score 0: Self Report Additional Pain Score Comments Reports sore , not painful . Assessment OT Clinical Summary Patient referred to outpatient OT s/p right 1st CMC arthroplasty. She is 6 weeks post op and is progressing. She demonstrates return of functional ROM. Emissions Inspector/pinch measurements today are below functional limits. A guest house manager/pinch strengthening HEP as well as light wrist strengthening HEP have been issued. She demonstrates excellent understanding of all materials and is ready for discharge. No further skilled OT indicated at this time. Plan of Care OT Services Indicated No
== END 2023-04-17 11:59 | disposition home or self-care (01) ==
LOC: ANHOT 07:30
PROVIDERS: PCP Emergency Medicine; Visit Provider Orthopaedic Surgery
DX: Z48.89 Encounter for other specified surgical aftercare (principal); Z98.890 Other specified postprocedural states
CPT/HCPCS: 97018; 97110; 97140; 97165

== ENCOUNTER 2023-04-24 07:48 | Outpatient (CLI) | payer OTHER, SELFPAY ==
--- NOTE | ~2023-04-24 | MM_ITS ---
EXAMINATION: MM screening kaycee BI w dinora HISTORY: Screening mammogram TECHNIQUE: Craniocaudal and mediolateral oblique 3-D tomosynthesis images were obtained and synthetic 2-D images were generated. CAD analysis was submitted and interpreted. COMPARISON: 11/30/2021, 05/30/2020 bilateral screening mammogram examinations BREAST PARENCHYMAL COMPOSITION: There are scattered areas of fibroglandular density. FINDINGS: There is no evidence of suspicious mass, calcification, or architectural distortion to sugg est malignancy in either breast. There has been no suspicious interval change. IMPRESSION: 1. No mammographic evidence of malignancy. 2. Recommend routine screening mammography in one year. BI-RADS Category 1: Negative Reviewed, dictated and finalized at location A.
== END 2023-04-24 07:49 | disposition home or self-care (01) ==
LOC: ANHIMG 07:49
PROVIDERS: PCP Emergency Medicine; Visit Provider Emergency Medicine
DX: Z12.31 Encounter for screening mammogram for malignant neoplasm of breast (principal)
CPT/HCPCS: 77063; 77067

== ENCOUNTER 2023-11-18 02:44 | Day surgery (SDC) | payer OTHER, SELFPAY ==
[2023-11-08 11:28] VITALS: BMI 40.3
--- NOTE | 2023-11-15 09:12 | SUR.PREOP ---
Patient called regarding upcoming procedure. Voicemail left regarding appointment times.
[2023-11-18 06:53] VITALS: BP 127/68; PULSE 80; RESP 16; O2SAT 96
[2023-11-18] MEDS: LACTATED RINGERS 1,000 ML 150 ML IV CONT (07:03)
[2023-11-18 07:04] LABS: Glucose Point of Care 99 mg/dl (65-105)
--- NOTE | 2023-11-18 07:49 | PM.HPGS ---
History of Present Illness History of Present Illness Consent: Risks, benefits, and alternatives have been discussed and questions answered. Patient agrees to proceed with procedure. Chief complaint: neoplasm screening Narrative: Marta Piper is a 53 year old female here for first screening colonoscopy Review of Systems Review of Systems: All systems reviewed & are unremarkable except as noted in HPI and below PMFSH Past Medical History Medical History Anxiety Arthritis BMI 39.0-39.9,adult Body mass index [BMI] 36.0-36.9, adult (07/04/16) Carpal tunnel syndrome, bilateral Chronic back pain Chronic headaches Chronic neck pain Chronic shoulder pain Degenerative arthritis of knee, bilateral Depression Depression Disorder of skin and subcutaneous tissue Endometriosis Fatigue GERD (gastroesophageal reflux disease) HTN (hypertension) Hyperglycemia Macromastia Other chronic pain Paresthesia of skin Plantar fasciitis of right foot surgery 2019 Surgical History Surgical History Arthritis of carpometacarpal (CMC) joint of right thumb CMC suspension arthroplasty March 04, 2023 History of ankle surgery (~2007) left History of bladder surgery bladder mesh History of hysterectomy (~2002) 2002 History of laparoscopy for endometriosis History of shoulder surgery (~2016) right Lateral epicondylitis, right elbow debridement March 2020 Previous section 1997 & 1998 Family History Family History Father Family history of malignant neoplasm Family history of lung cancer Family history of lymphoma Family history of malignant neoplasm of urinary bladder Diabetes mellitus Hypertension Heart problem Sibling Family history of malignant neoplasm of cervix Family history of Hodgkin's lymphoma Breast cancer Diabetes mellitus Hypertension Depression with anxiety Grandparent Cerebrovascular accident Breast cancer Mother Hypertension Other Family history of cardiovascular disease Social History Social History Smoking packs per day: 0.5 Smoking cigarettes per day: 10.0 Years smoked: 10 Smoking pack-years: 5.00 Smoking status: Former smoker Tobacco type: cigarettes Second hand tobacco smoke exposure: No Smoking end date: 09/02/12 Additional smoking assessment comments: 1ppw x10 years Alcohol intake: current Drinks per week: 1 Alcohol use details: VANESSA Substance use: never Substance use type: does not use Do You Feel Safe in your Home?: Yes Lack of Transportation: No Lack of Food: Never True Current Housing: I Have Housing Concerned About Future Housing: No Difficulty Paying Gas/Electric Bills: No Difficulty Paying for Meds: No Currently Unemployed: No Education: Trade/Vocational Certificate Difficulty w/ Childcare or Family Care: No Living arrangements: with family Additional living arrangements comments: Occupation/Education: occupation 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 Gender identity (if verbalized by the patient): Female Sexual Orientation (if Verbalized by the Patient): Straight or Heterosexual Spiritual care concerns: No Meds Home Medications and Allergies Home Medications Medication Instructions Recorded Confirmed Type fluoxetine 40 mg capsule See Rx Instructions .Route 06/07/23 11/18/23 Rx .COMPLEX #90 caps metoprolol succinate 25 mg See Rx Instructions .Route 06/07/23 11/18/23 Rx tablet,extended release 24 hr .COMPLEX #90 tabs rosuvastatin 10 mg tablet See Rx Instructions .Route 06/07/23 11/18/23 Rx .COMPLEX #90 tabs cholecalciferol (vitamin D3) 1,250 1,250 mcg PO WEEKLY #12 caps 09/19/23 11/18/23 Rx mcg (50,000 unit) capsule p
[2023-11-18 08:04] VITALS: BP 113/69; PULSE 88; RESP 24; O2SAT 95
[2023-11-18 08:14] VITALS: BP 116/78; PULSE 74; RESP 17; O2SAT 95
[2023-11-18 08:30] VITALS: BP 114/71; PULSE 69; RESP 19; O2SAT 100
--- NOTE | 2023-11-19 14:50 | WPDANESEPPF ---
Anes - Initial Pre Proc Eval Procedure: Operation Date: 11/18/23 08:00 Proposed Procedures p Screening Colonoscopy - Carlin Khanna MD Date/Time: 11/19/23 14:50 Surgeon: Carlin Khanna MD Pre Op Diagnosis: neoplasm screening Patient Data Age: 53 Gender: F Height: 1.57 m Weight: 100.5 kg Last Vital Signs Pulse 69 11/18/23 08:30 Resp 19 11/18/23 08:30 BP 114/71 11/18/23 08:30 Pulse Ox 100 11/18/23 08:30 O2 Del Method Room Air 11/18/23 08:30 Allergies Allergy/AdvReac Type Severity Reaction Status Date / Time erythromycin base Allergy Severe Hives Verified 11/18/23 06:50 Home Medications Medication Instructions Recorded Confirmed Type fluoxetine 40 mg capsule See Rx Instructions .Route 06/07/23 11/18/23 Rx .COMPLEX #90 caps metoprolol succinate 25 mg See Rx Instructions .Route 06/07/23 11/18/23 Rx tablet,extended release 24 hr .COMPLEX #90 tabs rosuvastatin 10 mg tablet See Rx Instructions .Route 06/07/23 11/18/23 Rx .COMPLEX #90 tabs cholecalciferol (vitamin D3) 1,250 1,250 mcg PO WEEKLY #12 caps 09/19/23 11/18/23 Rx mcg (50,000 unit) capsule pantoprazole 40 mg tablet,delayed See Rx Instructions .Route 09/25/23 11/18/23 Rx release .COMPLEX #90 tabs metformin 500 mg tablet 250 mg PO BID #90 tabs 10/17/23 11/18/23 Rx Advanced Probiotic 2 ml PO DAILY 11/08/23 11/18/23 History multivitamin with minerals-folic 1 tablet PO DAILY 11/08/23 11/18/23 History acid 80 mcg chewable tablet (Centrum Adult 50 Plus) Patient hx anesthesia problems: none Family hx anesthesia problems: none Results Review: All pre-operative results and documents have been reviewed as part of the pre-operative evaluation. [facility] Past Medical History Medical History Anxiety Arthritis BMI 39.0-39.9,adult Body mass index [BMI] 36.0-36.9, adult (07/04/16) Carpal tunnel syndrome, bilateral Chronic back pain Chronic headaches Chronic neck pain Chronic shoulder pain Degenerative arthritis of knee, bilateral Depression Depression Disorder of skin and subcutaneous tissue Endometriosis Fatigue GERD (gastroesophageal reflux disease) HTN (hypertension) Hyperglycemia Macromastia Other chronic pain Paresthesia of skin Plantar fasciitis of right foot surgery 2019 Surgical History Surgical History Arthritis of carpometacarpal (CMC) joint of right thumb CMC suspension arthroplasty March 04, 2023 History of ankle surgery (~2007) left History of bladder surgery bladder mesh History of hysterectomy (~2002) 2002 History of laparoscopy for endometriosis History of shoulder surgery (~2016) right Lateral epicondylitis, right elbow debridement March 2020 Previous section 1997 & 1998 Family History Family History Father Family history of malignant neoplasm Family history of lung cancer Family history of lymphoma Family history of malignant neoplasm of urinary bladder Diabetes mellitus Hypertension Heart problem Sibling Family history of malignant neoplasm of cervix Family history of Hodgkin's lymphoma Breast cancer Diabetes mellitus Hypertension Depression with anxiety Grandparent Cerebrovascular accident Breast cancer Mother Hypertension Other Family history of cardiovascular disease Social History Social History Smoking packs per day: 0.5 Smoking cigarettes per day: 10.0 Years smoked: 10 Smoking pack-years: 5.00 Smoking status: Former smoker Tobacco type: cigarettes Second hand tobacco smoke exposure: No Smoking end date: 09/02/12 Additional smoking assessment comments: 1ppw x10 years Alcohol intake: current Drinks per week: 1 Alcohol use details: VANESSA Substance use: n
== END 2023-11-18 08:38 | disposition home or self-care (01) ==
PROVIDERS: PCP Emergency Medicine; Visit Provider Internal Medicine Gastroenterology
PROC: 0DJD8ZZ Inspection of Lower Intestinal Tract, Via Natural or Artificial Opening Endoscopic (ICD-10-PCS; CPT 45378; principal; 2023-11-18 08:00)
DX: Z12.11 Encounter for screening for malignant neoplasm of colon (principal); D12.3 Benign neoplasm of transverse colon; K64.8 Other hemorrhoids; I10 Essential (primary) hypertension; R73.9 Hyperglycemia, unspecified; F41.9 Anxiety disorder, unspecified; F32.A Depression, unspecified; K21.9 Gastro-esophageal reflux disease without esophagitis; N80.9 Endometriosis, unspecified; G89.29 Other chronic pain; M54.9 Dorsalgia, unspecified; R51.9 Headache, unspecified; M54.2 Cervicalgia; M25.519 Pain in unspecified shoulder; E66.01 Morbid (severe) obesity due to excess calories; Z68.41 Body mass index [BMI] 40.0-44.9, adult; Z79.84 Long term (current) use of oral hypoglycemic drugs; Z98.890 Other specified postprocedural states; Z87.891 Personal history of nicotine dependence; Z80.1 Family history of malignant neoplasm of trachea, bronchus and lung; Z80.52 Family history of malignant neoplasm of bladder; Z80.49 Family history of malignant neoplasm of other genital organs; Z80.3 Family history of malignant neoplasm of breast; Z82.49 Family history of ischemic heart disease and other diseases of the circulatory system
CPT/HCPCS: 45385; 82948; 88305; J2704; J7120

== ENCOUNTER 2024-04-25 07:26 | Outpatient (CLI) | payer OTHER, SELFPAY ==
--- NOTE | ~2024-04-25 | MM_ITS ---
EXAMINATION: MM screening kaycee BI w dinora HISTORY: Screening TECHNIQUE: Craniocaudal and mediolateral oblique 3-D tomosynthesis images were obtained and synthetic 2-D images were generated. CAD analysis was submitted and interpreted. COMPARISON: Comparison to multiple prior studies sequentially, with oldest reviewed study dated 10/2017. BREAST PARENCHYMAL COMPOSITION: Not dense: There are scattered areas of fibroglandular density. FINDINGS: There is no evidence of suspicious mass, calcification, or architectural distortion to sugg est malignancy in either breast. There has been no suspicious interval change. IMPRESSION: 1. No mammographic evidence of malignancy. 2. Recommend routine screening mammography in one year. BI-RADS Category 1: Negative Reviewed, dictated and finalized at location B.
== END 2024-04-25 07:27 | disposition home or self-care (01) ==
LOC: ANHIMG 07:28
PROVIDERS: PCP Emergency Medicine; Visit Provider Emergency Medicine
DX: Z12.31 Encounter for screening mammogram for malignant neoplasm of breast (principal)
CPT/HCPCS: 77063; 77067

== ENCOUNTER 2024-09-05 08:07 | Emergency (ER) | payer OTHER, SELFPAY ==
--- NOTE | 2024-09-05 08:10 | ED_ITS ---
HPI - URI/Sore Throat General Chief Complaint: Upper Respiratory Infection Stated Complaint: Congestion/Cough/Sore Throat Time Seen by Provider: 09/05/24 08:10 Source: patient Mode of arrival: ambulatory Limitations: no limitations History of Present Illness HPI Narrative: Patient is a 54-year-old female who presents with congestion, cough, sore throat for 2 days. Patient took COVID test the start of symptoms and it was negative. Patient has been taking Coricidin. Denies any fever, chills, nausea, vomiting, diarrhea. Patient is on take allergy medicine daily Related Data Home Medications ?Medication ?Instructions ?Recorded ?Confirmed ?Last Taken ?Type Advanced Probiotic 2 ml PO DAILY 11/08/23 07/01/24 11/17/23 History multivitamin with minerals-folic 1 tablet PO DAILY 11/08/23 07/01/24 11/17/23 History acid 80 mcg chewable tablet (Centrum Adult 50 Plus) Allergies Allergy/AdvReac Type Severity Reaction Status Date / Time erythromycin base Allergy Severe Hives Verified 09/05/24 08:27 Review of Systems Review of Systems: All systems reviewed & are unremarkable except as noted in HPI and below Constitutional: Constitutional: Denies body ache(s), Denies chills, Denies fatigue, Denies fever(s), Denies headache(s), Denies malaise and Denies weakness Eyes: Eyes: Denies blurry vision, Denies itchy eyes and Denies loss of vision ENT: Denies otalgia, Denies headache(s), Reports nasal congestion, Denies sinus pain and Reports sore throat Cardiovascular: Cardiovascular: Denies chest pain, Denies irregular heart rhythm and Denies dyspnea Respiratory: Respiratory: Reports cough and Denies dyspnea Gastrointestinal: Gastrointestinal: Denies abdominal pain, Denies diarrhea, Denies nausea and Denies vomiting Musculoskeletal: Musculoskeletal: Denies back pain, Denies myalgias and Denies arthralgias Integumentary/Breasts: Skin/Breast: Denies pruritus and Denies rash Neurologic: Denies headache(s), Denies loss of vision and Denies weakness Psychiatric: Psychiatric: Reports no additional psychiatric complaints Endocrine: Endocrine: Denies fatigue Allergic/Immunologic: Allergic/Immunologic: Denies itchy eyes PMFSH Past Medical History Medical History Intertriginous dermatitis associated with moisture Dyspareunia Vaginal irritation Anxiety Endometriosis Abdominal pain Vulvar itching Vaginal discharge GERD (gastroesophageal reflux disease) Body mass index [BMI] 36.0-36.9, adult (07/04/16) Chronic back pain Chronic neck pain Chronic shoulder pain Disorder of skin and subcutaneous tissue Macromastia Other chronic pain Paresthesia of skin Degenerative arthritis of knee, bilateral Carpal tunnel syndrome, bilateral Pain in left wrist Pain in right wrist Arthritis HTN (hypertension) BMI 39.0-39.9,adult Plantar fasciitis of right foot surgery 2019 Hyperglycemia Fatigue Depression Chronic headaches Depression Surgical History Surgical History Arthritis of carpometacarpal (CMC) joint of right thumb CMC suspension arthroplasty March 04, 2023 History of bladder surgery bladder mesh History of laparoscopy for endometriosis Lateral epicondylitis, right elbow debridement March 2020 History of ankle surgery (~2007) left History of shoulder surgery (~2016) right History of hysterectomy (~2002) 2002 Previous section 1997 & 1998 Family History Family History Father Family history of malignant neoplasm Family history of lung cancer Family history of lymphoma Family history of malignant neoplasm of urinary bladder Diabetes mellitus Hypertension Heart problem Sibling Family history of malignant neoplasm of cervix Family history of Hodgkin's lymphoma Breast cancer Diabetes mellitus Hypertension Depression with anxiety Grandparent Cerebrovascular accident Breast cancer Mother Hypertension Other Family history of cardiovascular disease Social History Social History Smoking packs per day: 0.5 Smoking cigarettes per day: 10.0 Years smoked: 10 Smoking pack-years: 5.00 Smoking status: Former smoker Tobacco type: cigarettes Second hand tobacco smoke exposure: No Smoking end date: 09/02/12 Additional smoking assessment comments: 1ppw x10 years Alcohol intake: current Drinks per week: 1 Alcohol use details: VANESSA Substance use: never Substance use type: does not use Do You Feel Safe in your Home?: Yes Lack of Transportation: No Lack of Food: Never True Current Housing: I Have Housing Concerned About Future Housing: No Difficulty Paying Gas/Electric Bills: No Difficulty Paying for Meds: No Currently Unemployed: No Education: High School Diploma/GED Difficulty w/ Childcare or Family Care: No Living arrangements: with family Additional living arrangements comments: Occupation/Education: occupation 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 There is no relevant family history pertinent to the presenting complaint. Exam Const: General: cooperative, healthy appearing, comfortable, no acute distress and well nourished Nutritional Appearance: well nourished Orientation/consciousness: patient oriented x3 Limitations: no limitations HENMT: Head: normal to inspection, normocephalic and atraumatic Ears: hearing grossly normal bilaterally, external ears normal, TM's normal bilaterally, EAC's normal and no periauricular adenopathy Face/Nose/Sinus: Normal external nose present, Abnormal mucous membranes and turbinates present erythematous bilateral and diffuse, normal facial exam, sinuses nontender and face symmetric Face and sinus: normal facial exam, sinuses nontender and face symmetric Mouth: Yes Normal oral and palatal mucosa present, Yes lip normal, Yes tongue normal, Yes Normal salivary glands and ducts present, Yes oropharynx normal and Yes moist mucous membranes Teeth and gingiva: dentition normal Throat: posterior oropharynx normal, tonsils normal and uvula midline Eyes: General: appearance normal, both eyes and all related structures Alignment and Position: alignment normal and position normal Periorbital: periorbital findings normal Eyelids: eyelids normal Pupils: Equal, round and reactive pupils present Neck: Neck: normal visual inspection, full ROM, no lymphadenopathy and supple Chest: Chest palpation & inspection: normal inspection of the chest and normal palpation of entire chest wall Resp: Effort & Inspection: normal respiratory effort and able to speak in complete sentences Auscultation: clear to auscultation bilaterally, no crackles, no rales, no rhonchi and no wheezes Cardio: Rate: regular rate Rhythm: regular rhythm Heart sounds: S1 normal heart sound present and S2 normal heart sound present GI: Inspection: normal to inspection Skin: General skin exam: normal color and no rashes or lesions noted Neuro: General: patient oriented x3 and moves all extremities Cranial nerves: Yes Equal, round and reactive pupils present Speech: normal speech Gait exam (Neuro): Normal gait present Extrem: General: normal to inspection, full ROM and no edema Psych: Appearance: grossly normal and well kempt Mental Status: mental status grossly normal Speech and movement: Normal speech and movement present Affect: normal affect Attitude: cooperative Thought process: Normal thought process present Course Course Emergency Course: Discharge instructions reviewed with patient, as well as provided in writing per nursing staff. The instructions also include specific and strict return/GO TO THE ER as well as f/u information. All questions have been answered, and the patient deny any further questions with discharge and discharge plan. Portions of this record may have been created with voice recognition software Level of Care: Express Care Visit Vital Signs Vital signs: Vital Signs Temperature 36.8 C 09/05/24 08:20 Pulse Rate 81 09/05/24 08:20 Respiratory Rate 16 09/05/24 08:20 Blood Pressure 133/89 09/05/24 08:20 Pulse Oximetry 98 09/05/24 08:20 Temperature 36.8 C 09/05/24 08:20 Pulse Rate 81 09/05/24 08:20 Respiratory Rate 16 09/05/24 08:20 Blood Pressure 133/89 09/05/24 08:20 Pulse Oximetry 98 09/05/24 08:20 Reviewed MDM - URI/Sore Throat MDM Narrative Medical decision making narrative: Pt well hydrated appearing, in no respiratory distress, hemodynamically stable. Recommend supportive care. The patient is stable at time of discharge the clinical impression was discussed and the patient was given the opportunity to ask questions, which were addressed as completely as possible given the information available at present. Anticipatory guidance and return to care precautions were discussed and the importance of primary care follow-up was stressed and encouraged. The patient voiced understanding of the plan, indications to return, and the need for follow-up. Differential diagnosis considered: Baum virus, strep pharyngitis, allergic rhinitis, upper respiratory tract infection, sinusitis, rhinosinusitis, nasopharyngitis. viral pharyngitis, otitis media, otitis externa, otitis effusion, foreign body, cerumen impaction, viral syndrome, and influenza.? Exam findings show no acute concerns or changes; patient is non-toxic appearing and is in no distress.? Patient is appropriate for outpatient treatment and follow- up.? Medical Records Attestation: I reviewed the patient's medical records. Lab Data Attestation: I reviewed the patient's lab results. Labs: Lab Results 09/05/24 Range/Units 08:45 POC Influenza A Ag Negative (Negative) POC Influenza B Ag Negative (Negative) POC SARS CoV-2 Ag Negative (Negative) Discharge Plan Discharge Clinical Impression: Upper respiratory infection Qualifiers: URI type: unspecified viral URI Qualified Code(s): J06.9 - Acute upper respiratory infection, unspecified Patient Disposition: Home, Self-Care Condition: Stable Instructions: Upper Respiratory Infection (ED) Additional Instructions: Your Covid and flu are both negative Your symptoms are likely due to a viral illness, which is not treated with antibiotics. Viral symptoms can be present for up to a few weeks. -Alternate Tylenol and Motrin per package directions for fever or pain. -Antihistamine medication such as Benadryl/Zyrtec at night and Claritin/Chyna during the day can help improve symptoms. -Use Flonase twice a day for 5 days then daily to help reduce the inflammation and dry up your sinuses. -You can also use Sudafed behind the pharmacy counter(12 or 24 hour). Be sure to drink plenty of water with these medications at least 8 ounces with every dose and it is important to drink 8 to 10 glasses of water per day. Water is a natural decongestant -Eat and drink things that are easy to swallow, like tea or soup, or popsicles. -Oral rinses such as: Salt water gargles and/or may use topical anesthetic (eg. Chloraseptic spray) or lozenges to relieve dryness or throat pain). -Frequent hand washing or hand cigarette inspector is one of the best ways to prevent spread of infection. -Using a vaporizer or humidifier at night will also help thin secretions and help with coughing up phlegm. -Follow up with primary care provider in 3-5 days if condition is not improving - For new or worsening symptoms go directly to the nearest ER Patient Language: Hungarian Prescriptions: New fluticasone propionate [Flonase Allergy Relief] 50 mcg/actuation spray,suspension 1 spray intranasal DAILY Qty: 16 0RF Rx Instructions: administer into each nostril loratadine 10 mg tablet 10 mg PO DAILY Qty: 30 0RF No Action Advanced Probiotic 2 ml PO DAILY Centrum Adult 50 Plus 80 mcg Tablet,Chewable 1 tablet PO DAILY fluoxetine 40 mg capsule See Rx Instructions .ROUTE .COMPLEX Qty: 90 2RF Dose Instruction: TAKE 1 CAPSULE BY MOUTH EVERY EVENING Rx Instructions: TAKE 1 CAPSULE BY MOUTH EVERY EVENING metoprolol succinate 25 mg tablet extended release 24 hr See Rx Instructions .ROUTE .COMPLEX Qty: 90 2RF Dose Instruction: TAKE 1 TABLET BY MOUTH EVERY DAY IN THE EVENING Rx Instructions: TAKE 1 TABLET BY MOUTH EVERY DAY IN THE EVENING rosuvastatin 10 mg tablet See Rx Instructions .ROUTE .COMPLEX Qty: 90 2RF Dose Instruction: TAKE 1 TABLET BY MOUTH EVERY DAY Rx Instructions: TAKE 1 TABLET BY MOUTH EVERY DAY pantoprazole 40 mg tablet,delayed release (DR/EC) See Rx Instructions .ROUTE .COMPLEX Qty: 90 2RF Dose Instruction: TAKE 1 TABLET BY MOUTH EVERY DAY IN THE MORNING Rx Instructions: TAKE 1 TABLET BY MOUTH EVERY DAY IN THE MORNING metformin 500 mg tablet See Rx Instructions .ROUTE .COMPLEX Qty: 90 2RF Dose Instruction: TAKE HALF A TABLET (250MG) BY MOUTH TWICE DAILY Rx Instructions: TAKE HALF A TABLET (250MG) BY MOUTH TWICE DAILY cholecalciferol (vitamin D3) 1,250 mcg (50,000 unit) capsule See Rx Instructions .ROUTE .COMPLEX Qty: 12 2RF Dose Instruction: TAKE ONE CAPSULE (1250 MCG) BY MOUTH ONCE WEEKLY Rx Instructions: TAKE ONE CAPSULE (1250 MCG) BY MOUTH ONCE WEEKLY Colace Clear 50 mg capsule 50 mg PO BID PRN (Reason: constipation) Qty: 30 2RF Ozempic 1 mg/dose (4 mg/3 mL) pen injector 1 mg subcut WEEKLY Qty: 3 0RF Rx Instructions: For 4 weeks Follow-up/Referrals: Guido Tillman MD [Primary Care Provider] - 3 Days Time of Disposition: 08:59
[2024-09-05 08:20] VITALS: BP 133/89; PULSE 81; RESP 16; TEMP 36.8; O2SAT 98
[2024-09-05 08:47] LABS: EDCOVIDSCREEN Negative (Negative); EDINFLUASCREEN Negative (Negative); EDINFLUBSCREEN Negative (Negative)
== END 2024-09-05 09:04 | disposition home or self-care (01) ==
PROVIDERS: Emergency Provider Nurse Practitioner Family; PCP Emergency Medicine
DX: J06.9 Acute upper respiratory infection, unspecified (principal); Z20.822 Contact with and (suspected) exposure to COVID-19; I10 Essential (primary) hypertension; N80.9 Endometriosis, unspecified; K21.9 Gastro-esophageal reflux disease without esophagitis; M17.0 Bilateral primary osteoarthritis of knee; Z87.891 Personal history of nicotine dependence
CPT/HCPCS: 87426; 87804; 99213; G0463

== ENCOUNTER 2025-03-18 02:08 | Day surgery (SDC) | payer OTHER, SELFPAY ==
[2024-12-24 15:40] VITALS: BMI 32.2
[2025-03-04 10:16] VITALS: BMI 30.6
--- OUTSIDE RECORDS SUMMARY | 2025-03-18 02:12 | XMS_ITS | Clinical Summary ---
Author Organization [facility] Health Address [address] [place] [address] Care Team Providers Care Assistant Casino Shift Manager Name Role Phone Unavailable Primary Care Provider Unavailabl e Medications No known medications Active Problems No known active problems Social History Tobacco Use Types Packs/Day Years Used Date Smoking Tobacco: Never Assessed Comments Unknown Sex and Gender Information Value Date Recorded Sex Assigned at Not on file Legal Sex Female 12:42 AM PST Gender Identity Not on file Sexual Orientation Not on file Plan of Treatment Health Maintenance Due Date Last Done Comments Scaling and Root Planing 1970 Dental X-Ray: Full Mouth 07/03/2021 07/02/2018 Periodontal Maintenance 11/06/2022 08/07/20, 04/08/2021, 12/06/2020, Additional history exists Dental Oral Exam 02/06/2023 08/07/2022, 01/2021, 05/26/2020, Additional history exists Dental X-Ray: Bitewings 02/06/2023 08/07/2022 Dental X-Ray: Panoramic 10/24/2024 10/23/2021, 07/02 Procedures Procedure Name Priority Date/Time Associated Diagnosis Comments PERIODIC ORAL EVALUATION - ESTABLISHED PATIENT Routine 08/07/2022 1:30 PM BODY BUILDER APPRENTICE PERIO MAINTENANCE Routine 08/07/2022 1:0 0 PM BODY BUILDER APPRENTICE PANORAMIC RADIOGRAPHIC IMAGE Routine 07/02/2018 2:00 AM CDT INTRAORAL - COMPREHENSIVE SERIES OF RADIOGRAPHIC IMAGES Routine 07/02/2018 2:00 AM CDT from Last 3 Months or Most Recently Relevant to Health Maintenance Insurance [facility] [place] PPO
--- OUTSIDE RECORDS SUMMARY | 2025-03-18 02:12 | XMS_ITS | Referral Summary ---
Author Organization [address] Address [address] [place] [id number] Care Team Providers Care Chip Tester Name Role Phone Guido Tillman MD Primary Care Provide r Allergies Active Allergy Reactions Criticality Noted Date Comments Erythromycin Medications FLUoxetine (PROzac) 40 mg capsule Take 1 capsule (40 mg total) by mouth daily 3 9 Active olmesartan (BENICAR) 20 mg tablet Take 20 mg by mouth daily. 4 9 Active spironolactone (ALDACTONE) 25 mg tablet Take 25 mg by mouth daily. Active rosuvastatin (CRESTOR) 10 mg tablet 2 Active metoprolol XL (TOPROL-XL) 25 mg extended release tablet metoprolol succinate ER 25 mg tablet,extended release [address] (PROTONIX) 40 mg EC tablet Take 1 tablet (40 mg total) by mouth every morning 3 Active estradioL (ESTRACE) 0.01 % (0.1 mg/gram) vaginal cream PLEASE SEE ATTACHED FOR DETAILED DIRECTIONS 3 Active benzonatate (TESSALON) 100 mg capsuleIndicati ons:Cough Take 1 capsule (100 mg total) by mouth 3 (three) times a day as needed for cough 21 capsule 3 Active Active Problems Problem Noted Date Diagnosed Date Abnormal mammogram 10/31/2018 Cervicalgia 03/01/2014 Knee pain 01/15/2014 Pain in pelvis 03/04/2013 Lumbago 02/26/2013 Arthralgia of hip 02/26/2013 Social History Tobacco Use Types Packs/Day Years Used Date Smoking Tobacco: Former Smokeless Tobacco: Never Tobacco Cessation:Counseling Given: Not Answered Alcohol Use Standard Drinks/Week Comments Yes 0 (1 standard drink = 0.6 oz pur e alcohol) socially Personal Safety Answer Date Recorded Getting School Help Needed Not on file 08/12 Comments No Sex and Gender Information Value Date Recorded Sex Assigned at Not on file Legal Sex Female 4:40 AM REACTOR KETTLE OPERATOR Gender Identity Not on file Sexual Orientation Not on file Last Filed Vital Signs Vital Sign Reading Time Taken Comments Blood Pressure 134/90 08/12/2023 10:09 AM REACTOR KETTLE OPERATOR Pulse 72 08/12/2023 10:09 AM REACTOR KETTLE OPERATOR Temperature 36.9 C (98.4 F) 08/12/2023 10:09 AM REACTOR KETTLE OPERATOR Respiratory Rate 20 08/12/2023 10:09 AM REACTOR KETTLE OPERATOR Oxygen Saturation 98% 08/12/2023 10:09 AM REACTOR KETTLE OPERATOR Inhaled Oxygen Concentration - - Weight 102.1 kg (225 lb) 08/12/2023 10:09 AM REACTOR KETTLE OPERATOR Height 157.5 cm (5' 2) 08/12/2023 10:09 AM REACTOR KETTLE OPERATOR Body Mass Index 41.15 08/12/2023 10:09 AM REACTOR KETTLE OPERATOR Plan of Treatment Not on file Insurance [employer] OPEN [employer]ESS [facility] BENEFIT PLAN [facility] [employer] BENEFIT PLAN Care Teams Chip Tester Relationship Specialty Start Date End Date Guido Tillman MD [address] [place] [address] PCP - General Emergency Medicine 06/07/22
--- OUTSIDE RECORDS SUMMARY | 2025-03-18 02:12 | XMS_ITS | Clinical Summary ---
Author Organization [facility] [employer] Address [address] [place] [address] Care Team Providers Care Ship'S Surveyor Name Role Phone Guido Tillman MD Primary Care Provider Source Comments [facility],non-owned Affiliates and Associated Physician Practices is amultiple site organization consisting of ambulatory clinics and hospital sitesin [place], [place], [place] and [place]. This disclosure is being madepursuant to the Care Everywhere program and may not contain all information available regarding this patient. Last updated 18.[facility] [employer] Allergies Active Allergy Reactions Criticality Noted Date Comments Erythromycin Other 08/03/2024 Medications * Be aware that medications may not be up to date on this document. Alwaysverify current medications with the patient. Cholecalcifero l (vitamin D3) 1.25 MG (26206 UT) capsule TAKE ONE CAPSULE (1250 MCG) BY MOUTH ONCE WEEKLY 4 Active FLUoxetine (PROzac) 40 MG capsule Take 1 (one) capsule by mouth every evening 4 Active metFORMIN (Glucophage) 500 MG tablet TAKE HALF A TABLET (250MG) BY MOUTH TWICE DAILY 4 Active metoprolol succinate XL 24hr (Toprol XL) 25 MG tablet Take 1 (one) tablet by mouth every evening Active pantoprazole EC (Protonix) 40 MG tablet Take 1 (one) tablet by mouth every morning 4 Active rosuvastatin (Crestor) 10 MG tablet Take 1 (one) tablet by mouth once daily 4 Active Ozempic, 1 MG/DOSE, 4 MG/3ML pen INJECT 1 MG (0.75 ML) SUBCUTANEOUSLY WEEKLY FOR 4 WEEKS 10/17/202 4 Active Social History Tobacco Use Types Packs/Day Years Used Date Smoking Tobacco: Never Assessed PHQ-2 Answer Date Recorded Patient Health Questionnaire-2 Score 3 08/03/2024 Comments Unknown Sex and Gender Information Value Date Recorded Sex Assigned at Not on file Legal Sex Female 7:04 AM CDT Gender Identity Not on file Sexual Orientation Not on file Plan of Treatment Health Maintenance Due Date Last Done Comments COLOGUARD (AGES 45-75) - COL ON CA SCREENING 1970 COLON MONITORING 1970 COLONOSCOPY - COLON CA SCREENING 1970 CT COLONOGRAPHY - COLON CA SCREENING 1970 Colorectal Cancer Screening 1970 FIT - COLON CA SCREENING 1970 FLEX SIG - COLON CA SCREENING 1970 MAMMOGRAM 1970 HIV SCREENING 1985 HEPATITIS C SCREENING 06/19/1988 DTAP/TDAP/TD VACCINES (1 - Tdap) 1989 HEPATITIS B VACCINE (1 of 3 - 19+ 3-dose series) 1989 PAP SMEAR 1991 PNEUMOCOCCAL VACCINE 50+ (1 of 1 - PCV) 2020 ZOSTER VACCINE (1 of 2) 2020 COVID-19 VACCINE (1 - 2023-2 5 season) 2024 DEPRESSION SCREENING 09/02/2024 INFLUENZA VACCINE (#1) 2025 HIB VACCINE Aged Out No longer eligi ble based on patient's age to complete this topic HPV VACCINE Aged Out No longer eligi ble based on patient's age to complete this topic MENINGOCOCCAL (Group B) VACC INE SHARED DECISION-MAKING Aged Out No longer eligibl e based on patient's age to complete this topic MENINGOCOCCAL GROUPS A/C/Y/W VACCINE Aged Out No longer eligible b ased on patient's age to complete this topic Insurance SELF PAY NO INSURANCE Member Subscriber Plan / Payer (Ef fective for All Dates) Name:Asmita Piper Member ID:Not on file Relation to Subscriber:Not on file Name:GIUSEPPELUDINASMITA Abebe Subscriber ID:Not on file Address: [address] [place] [address] Payer ID:Not on file Group ID:Not on file Type:Self Pay Address: [place], [place] [facility] [place] Address: [facility] [address] [place] [address] [facility] Member Subscriber Plan / Payer (Ef fective for All Dates) Name:Giuseppezoraida Asmita Kindra Member ID:Not on file Relation to Subscriber:Not on file Name:FLORESASMITA Subscriber ID:Not on file Address: [address] [place] [address] Payer ID:Not on file Group ID:Not on file Type:Self Pay Address: [place], [place] [employer] SELF PAY NO INSURANCE Member Subscriber Plan / Payer (Ef fective for All Dates) Name:GiuseppeludinStacia abebeAsmita K Member ID:Not on file Relation to Subscriber:Not on file Name:ASMITA PIPER Subscriber ID:Not on file Address: [address] [place], [place] [address] [address] Payer ID:Not on file Group ID:Not on file Type:Self Pay Address: [place], [place] Care Teams Ship'S Surveyor Relationship Specialty Start Date End Date Guido Tillman MD [address] [place] [id number] PCP - General Internal Medicine 07/02/24
--- OUTSIDE RECORDS SUMMARY | 2025-03-18 02:12 | XMS_ITS | Clinical Summary ---
Author Organization [facility] Address [address] [place] [id number] Care Team Providers Care Signal Worker Helper Name Role Phone Guido Tillman MD Primary [...] 03/04/2013 Lumbago 02/26/2013 Arthralgia of hip 02/26/2013 Surgical History Surgery Date Site/Laterality Comments SECTION 1997, 1998 HYSTERECTOMY 09/02/2002 - 09/01/2003 ANKLE SURGERY 09/02/2005 - 09/01/2006 SHOULDER ARTHROSCOPY 09/02/2016 - 09/01/2017 BLADDER SUSPENSION 09/02/2016 - 09/01/2017 Medical History Medical History Date Comments Personal history of other di seases of the circulatory system History of hypertension - (A dded by TW Conv) Hypertension Chronic headaches Depression Overweight Arthritis Family History Medical History Relation Name Comments Arthritis Father Family history of arthritis - (Added by TW Conv) Bladder Cancer Father Diabetes Father Family history of diabetes mellitus - (Added by TW Conv) Heart disease Father Family history of cardiac disorder - (Added by TW Conv) Hypertension Father Family history of hypertension - (Added by TW Conv) Leukemia Father Lung cancer Father Breast cancer Maternal Grandmother Blood Clot Mother Family history of blood clots - (Added by TW Conv) Ovarian cancer Niece genetic testi ng pending Breast cancer Sister 1 Non-Hodgkin's Lymphoma Sister 2 Cervical cancer Sister 3 Relation Name Status Comments Father Maternal Grandmother Mother Niece Sister 1 Sister 2 Sister 3 Social History Tobacco Use Types Packs/Day Years [...] on file Legal Sex Female 4:40 AM CORPORATE 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 Gender Identity Not on file Sexual Orientation Not on file Obstetrics History Last Filed Vital Signs Vital Sign Reading Time Taken Comments Blood Pressure 134/90 08/12/2023 10:09 AM CORPORATE TAX MANAGER Pulse 72 08/12/2023 10:09 AM CORPORATE TAX MANAGER Temperature 36.9 C (98.4 F) 08/12/2023 10:09 AM CORPORATE TAX MANAGER Respiratory Rate 20 08/12/2023 10:09 AM CORPORATE TAX MANAGER Oxygen Saturation 98% 08/12/2023 10:09 AM CORPORATE TAX MANAGER Inhaled Oxygen Concentration - - Weight 102.1 kg (225 lb) 08/12/2023 10:09 AM CORPORATE TAX MANAGER Height 157.5 cm (5' 2) 08/12/2023 10:09 AM CORPORATE TAX MANAGER Body Mass Index 41.15 08/12/2023 10:09 AM CORPORATE TAX MANAGER Plan of Treatment Health Maintenance Due Date Last Done Comments Breast Cancer Screening-Mammogram 1970 Colon Cancer Screening-Colonoscopy 1970 Depression Screening 1970 Hepatitis C Screening 1970 DTaP/Tdap/Td Vaccine (1 - Tdap) 1981 Hepatitis B Screening 1988 Regular Well Visit/Exam 18-64 1988 Zoster Vaccine (1 of 2) 2020 Covid-19 Vaccine (3 - 2023-2 5 season) 2024 12/09/2020, 11/18/2020 Influenza Vaccine (Season Ended) 2025 Pneumococcal vaccine <65 Aged Out No longer eligible based on patient's age to complete this topic Insurance [employer] OPEN ACCESS [facility] BENEF[facility] Care Teams Signal Worker Helper Relationship Specialty Start Date End Date Guido Tillman MD [address] [place] [address] PCP - General Emergency Medicine 06/07/22
--- OUTSIDE RECORDS SUMMARY | 2025-03-18 02:12 | XMS_ITS | Encounter Summary ---
Author Organization [facility] Address [address] [place] [address] Care Team Providers Care Court Liaison Name Role Phone Unavailable Primary Care Provider Unavailabl e Prior Encounters Date Type Department Care Team Description 08/07/2022 Travel 08/07/2022 1:30 PM PHARMACIST AIDE Office Visit [facility] [place] [address] Avinash Medel DDS 08/07/2022 1:00 PM PHARMACIST AIDE Office Visit [facility] [place] [phone] Cheyenne Maldonado RDH 07/30/2022 Travel 09/21/2019 Converted CPS Chart Documents [facility] [address] [place] [phone] <No scans attached> 09/21/2019 Converted CPS Chart Documents [facility] [address] [place] [phone] <No scans attached> 09/21/2019 Converted 13x Documents [facility] [address] [place] [phone] <No scans attached> 09/21/2019 Converted 13x Documents [facility] [place] [phone] <No scans attached> Plan of Treatment Not on file Procedures Procedure Name Priority Date/Time Associated Diagnosis Comments PERIODIC ORAL EVALUATION - ESTABLISHED PATIENT Routine 08/07/2022 1:30 PM PHARMACIST AIDE BITEWINGS - FOUR RADIOGRAPHIC IMAGES Routine 08/07/2022 1:30 PM PHARMACIST AIDE PERIO MAINTENANCE Routine 08/07/2022 1:0 0 PM PHARMACIST AIDE ORAL HYGIENE INSTRUCTIONS Routine 2021 1:00 PM PHARMACIST AIDE CANCELLED APPOINTMENT Routine 12/11/2021 2:00 AM CDT CANCELLED APPOINTMENT Routine 12/11/2021 2:00 AM CDT CANCELLED APPOINTMENT Routine 07/17/2021 2:00 AM PHARMACIST AIDE PERIO CONSULT Routine 06/01/2021 2:00 AM CDT 15 EXTRACTION, ERUPTED TOOTH OR EXPOSED ROOT (ELEVATION AND/OR FORCEPS REMOVAL) Routine 06/01/2021 2:00 AM CDT TOPICAL APPLICATION OF FLUORIDE VARNISH Routine 04/08/2021 2:00 AM CDT PERIO MAINTENANCE Routine 04/08/2021 2:0 0 AM CDT ORAL HYGIENE INSTRUCTIONS Routine 2020 2:00 AM CDT CANCELLED APPOINTMENT Routine 03/14/2021 2:00 AM CDT PERIODIC ORAL EVALUATION - ESTABLISHED PATIENT Routine 12/06/2020 2:00 AM CDT PERIO MAINTENANCE Routine 12/06/2020 2:0 0 AM CDT ORAL HYGIENE INSTRUCTIONS Routine 2020 2:00 AM CDT TOPICAL APPLICATION OF FLUORIDE VARNISH Routine 12/06/2020 2:00 AM CDT PERIO MAINTENANCE Routine 08/23/2020 2:0 0 AM PHARMACIST AIDE ORAL HYGIENE INSTRUCTIONS Routine 2019 2:00 AM PHARMACIST AIDE TOPICAL APPLICATION OF FLUORIDE VARNISH Routine 08/23/2020 2:00 AM PHARMACIST AIDE CANCELLED APPOINTMENT Routine 06/08/2020 2:00 AM CDT 3 MO AMALGAM 2 SURFACE Routine 0 2:00 AM CDT 31 O AMALGAM 1 SURFACE Routine 0 2:00 AM CDT 19 O AMALGAM 1 SURFACE Routine 0 2:00 AM CDT 14 O AMALGAM 1 SURFACE Routine 0 2:00 AM CDT 15 CROWN PFM POST Routine 05/26/2020 2:0 0 AM CDT PERIODIC ORAL EVALUATION - ESTABLISHED PATIENT Routine 05/26/2020 2:00 AM CDT BITEWINGS - FOUR RADIOGRAPHIC IMAGES Routine 05/26/2020 2:00 AM CDT 30 O COMPOSITE FILLING Routine 0 2:00 AM CDT 11 F COMPOSITE FILLING Routine 0 2:00 AM CDT CANCELLED APPOINTMENT Routine 12/08/2019 2:00 AM CDT 11 FREE SOFT TISSUE GRAFT PROCEDUREFIRST TOOTH, IMPLANT OR EDENTULOUS TOOTH POSITION IN GRAFT Routine 08/05/2019 2:00 AM PHARMACIST AIDE PERIO MAINTENANCE Routine 07/28/2019 2:0 0 AM PHARMACIST AIDE ORAL HYGIENE INSTRUCTIONS Routine 2018 2:00 AM PHARMACIST AIDE BITEWINGS - FOUR RADIOGRAPHIC IMAGES Routine 07/28/2019 2:00 AM PHARMACIST AIDE CANCELLED APPOINTMENT Routine 07/20/2019 2:00 AM PHARMACIST AIDE CANCELLED APPOINTMENT Routine 07/20/2019 2:00 AM PHARMACIST AIDE CANCELLED APPOINTMENT Routine 05/21/2019 2:00 AM CDT PERIODIC ORAL EVALUATION - ESTABLISHED PATIENT Routine 03/18/2019 2:00 AM CDT PERIO MAINTENANCE Routine 11/13/2018 2:0 0 AM CDT ORAL HYGIENE INSTRUCTIONS Routine 2018 2:00 AM CDT 14 GUIDED TISSUE REGENERATION, NATURAL TEETH - RESORBABLE BARRIER, PER SITE Routine 09/19/2018 2:00 AM PHARMACIST AIDE 14 BONE REPLACEMENT GRAFT RETAINED NATURAL TOOTH FIRST SITE IN QUADRANT Routine 09/19/2018 2:00 AM PHARMACIST AIDE 14 UL OSSEOUS SURGERY ONE TO THREE CONTIGUOUS TEETH Routine 09/19/2018 2:00 AM PHARMACIST AIDE TREATMENT OF COMPLICATIONS (POST-SURGICAL) - UNUSUAL CIRCUMSTANCES, BY REPORT Routine 08/19/2018 2:00 AM PHARMACIST AIDE 31 GUIDED TISSUE REGENERATION, NATURAL TEETH - RESORBABLE BARRIER, PER SITE Routine 08/06/2018 2:00 AM PHARMACIST AIDE 3 GUIDED TISSUE REGENERATION, NATURAL TEETH - RESORBABLE BARRIER, PER SITE Routine 08/06/2018 2:00 AM PHARMACIST AIDE 30 BONE REPLACEMENT GRAFT RETAINED NATURAL TOOTH EACH ADDITIONAL SITE IN QUADRANT Routine 08/06/2018 2:00 AM PHARMACIST AIDE 31 BONE REPLACEMENT GRAFT RETAINED NATURAL TOOTH FIRST SITE IN QUADRANT Routine 08/06/2018 2:00 AM PHARMACIST AIDE 3 BONE REPLACEMENT GRAFT RETAINED NATURAL TOOTH FIRST SITE IN QUADRANT Routine 08/06/2018 2:00 AM PHARMACIST AIDE 3 UR OSSEOUS SURGERY ONE TO THREE CONTIGUOUS TEETH Routine 08/06/2018 2:00 AM PHARMACIST AIDE 30 LR OSSEOUS SURGERY ONE TO THREE CONTIGUOUS TEETH Routine 08/06/2018 2:00 AM PHARMACIST AIDE PERIO CONSULT Routine 07/23/2018 2:00 AM PHARMACIST AIDE BITEWINGS - FOUR RADIOGRAPHIC IMAGES Routine 07/03/2018 2:00 AM CDT ADDITIONAL X-RAY Routine 07/03/2018 2:00 AM CDT ADDITIONAL X-RAY Routine 07/03/2018 2:00 AM CDT COMPREHENSIVE ORAL EVALUATION - NEW OR ESTABLISHED PATIENT Routine 07/02/2018 2:00 AM CDT PANORAMIC RADIOGRAPHIC IMAGE Routine 07/02/2018 2:00 AM CDT INTRAORAL - COMPREHENSIVE SERIES OF RADIOGRAPHIC IMAGES Routine 07/02/2018 2:00 AM CDT INTRAORAL PHOTO Routine 07/02/2018 2:00 AM CDT INTRAORAL PHOTO Routine 07/02/2018 2:00 AM CDT INTRAORAL PHOTO Routine 07/02/2018 2:00 AM CDT INTRAORAL PHOTO Routine 07/02/2018 2:00 AM CDT Visit Diagnoses Not on file Insurance [facility]
[2025-03-18 11:06] VITALS: BP 117/78; PULSE 75; RESP 16; TEMP 36.2; O2SAT 100; BMI 30.6
[2025-03-18] MEDS: LACTATED RINGERS 1,000 ML 150 ML IV CONT (11:16)
--- NOTE | 2025-03-18 11:59 | P.PNAN_ITS ---
Anes - Initial Pre Proc Eval Procedure: Operation Date: 03/18/25 14:15 Proposed Procedures p Esophagogastroduodenoscopy - Carlin Khanna MD Date/Time: 03/18/25 11:59 Surgeon: Carlin Khanna MD Pre Op Diagnosis: Dysphagia, unspecified, GERD Patient Data Age: 54 Gender: F Height: 1.57 m Weight: 76 kg Last Vital Signs Temp 97.1 F L 03/18/25 11:06 Pulse 75 03/18/25 11:06 Resp 16 03/18/25 11:06 BP 117/78 03/18/25 11:06 Pulse Ox 100 03/18/25 11:06 O2 Del Method Room Air 03/18/25 11:06 Allergies Allergy/AdvReac Type Severity Reaction Status Date / Time erythromycin base Allergy Severe Hives Verified 03/18/25 11:05 Home Medications ?Medication ?Instructions ?Recorded ?Confirmed ?Type Advanced Probiotic 2 ml PO DAILY 11/08/23 03/18/25 History pantoprazole 40 mg tablet,delayed See Rx Instructions .Route 06/30/24 03/18/25 Rx release .COMPLEX #90 tabs cholecalciferol (vitamin D3) 1,250 See Rx Instructions .Route 08/18/24 03/18/25 Rx mcg (50,000 unit) capsule .COMPLEX #12 caps cyanocobalamin (vitamin B-12) 1,000 mcg PO DAILY 09/16/24 03/18/25 History 1,000 mcg capsule fluoxetine 40 mg capsule See Rx Instructions .Route 12/25/24 03/18/25 Rx .COMPLEX #90 caps linaclotide 145 mcg capsule 145 mcg PO DAILY PRN constipation 02/19/25 03/04/25 History (Linzess) metoprolol succinate 25 mg 25 mg PO EVERY OTHER DAY 02/19/25 03/18/25 History tablet,extended release 24 hr rosuvastatin 10 mg tablet See Rx Instructions .Route .COMPLEX 02/19/25 03/18/25 History semaglutide 1 mg/dose (4 mg/3 mL) 1 mg (0.75 mL) subcut WEEKLY #9 mL 02/26/25 03/04/25 Rx subcutaneous pen injector (Ozempic) metformin 500 mg tablet 500 mg PO DAILY 03/04/25 03/18/25 History Patient hx anesthesia problems: none Family hx anesthesia problems: none Results Review: All pre-operative results and documents have been reviewed as part of the pre- operative evaluation. [facility] Past Medical History Medical History Dyspareunia Intertriginous dermatitis associated with moisture Vaginal irritation Anxiety Endometriosis Abdominal pain Vulvar itching Vaginal discharge GERD (gastroesophageal reflux disease) Body mass index [BMI] 36.0-36.9, adult (07/04/16) Chronic back pain Chronic neck pain Chronic shoulder pain Disorder of skin and subcutaneous tissue Macromastia Other chronic pain Paresthesia of skin Degenerative arthritis of knee, bilateral Carpal tunnel syndrome, bilateral Pain in left wrist Pain in right wrist Arthritis HTN (hypertension) BMI 39.0-39.9,adult Plantar fasciitis of right foot surgery 2019 Hyperglycemia Fatigue Depression Chronic headaches Depression Surgical History Surgical History Arthritis of carpometacarpal (CMC) joint of right thumb CMC suspension arthroplasty March 04, 2023 History of bladder surgery bladder mesh History of laparoscopy for endometriosis Lateral epicondylitis, right elbow debridement March 2020 History of ankle surgery (~2007) left History of shoulder surgery (~2016) right History of hysterectomy (~2002) 2002 Previous section 1997 & 1998 Family History Family History Father Family history of malignant neoplasm Family history of lung cancer Family history of lymphoma Family history of malignant neoplasm of urinary bladder Diabetes mellitus Hypertension Heart problem Sibling Family history of malignant neoplasm of cervix Family history of Hodgkin's lymphoma Breast cancer Diabetes mellitus Hypertension Depression with anxiety Grandparent Cerebrovascular accident Breast cancer Mother Hypertension Other Family history of cardiovascular disease Social History Social History Smoking packs per day: 0.5 Smoking cigarettes per day: 10.0 Years smoked: 10 Smoking pack-years: 5.00 Smoking status: Former smoker Tobacco type: cigarettes Second hand tobacco smoke exposure: No Smoking end date: 09/02/12 Additional smoking assessment comments: 1ppw x10 years Alcohol intake: former Substance use: never Substance use type: does not use Do You Feel Safe in your Home?: Yes Lack of Transportation: No Lack of Food: Never True Current Housing: I Have Housing Concerned About Future Housing: No Difficulty Paying Gas/Electric Bills: No Difficulty Paying for Meds: No Currently Unemployed: No Education: High School Diploma/GED Difficulty w/ Childcare or Family Care: No Living arrangements: with family Additional living arrangements comments: Occupation/Education: occupation 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 Gender identity (if verbalized by the patient): Female Sexual Orientation (if Verbalized by the Patient): Straight or Heterosexual Spiritual care concerns: No Anes - Eval Final PreProcedure Day of Procedure 03/18/25 11:59 Patient weight: obese Lungs: normal air movement Airway: Mallampati scale class II Neurological: alert and oriented Last oral intake: >/= 8 hours ASA classification: II Emergent: no Anesthetic plan: proceed Anesthesia type and monitoring: general GIVS and standard monitoring Results Review: All pre-operative results and documents have been reviewed as part of the pre- operative evaluation. HTN, hyperlipidemia, GERD. Informed Consent: The patient's anesthetic plan and its attendant risks and benefits were discussed with the patient/family/POA. Questions were solicited and answers provided to the satisfaction of the patient/family/POA.
--- NOTE | 2025-03-18 12:03 | PM.HPGS ---
History of Present Illness History of Present Illness Consent: Risks, benefits, and alternatives have been discussed and questions answered. Patient agrees to proceed with procedure. Chief complaint: Dysphagia, unspecified, GERD Narrative: Marta Piper is a 54 year old female here for first egd, h/o gerd on ppi but sometimes symptomatic Review of Systems Review of Systems: All systems reviewed & are unremarkable except as noted in HPI and below PMFSH Past Medical History Medical History Dyspareunia Intertriginous dermatitis associated with moisture Vaginal irritation Anxiety Endometriosis Abdominal pain Vulvar itching Vaginal discharge GERD (gastroesophageal reflux disease) Body mass index [BMI] 36.0-36.9, adult (07/04/16) Chronic back pain Chronic neck pain Chronic shoulder pain Disorder of skin and subcutaneous tissue Macromastia Other chronic pain Paresthesia of skin Degenerative arthritis of knee, bilateral Carpal tunnel syndrome, bilateral Pain in left wrist Pain in right wrist Arthritis HTN (hypertension) BMI 39.0-39.9,adult Plantar fasciitis of right foot surgery 2019 Hyperglycemia Fatigue Depression Chronic headaches Depression Surgical History Surgical History Arthritis of carpometacarpal (CMC) joint of right thumb CMC suspension arthroplasty March 04, 2023 History of bladder surgery bladder mesh History of laparoscopy for endometriosis Lateral epicondylitis, right elbow debridement March 2020 History of ankle surgery (~2007) left History of shoulder surgery (~2017) right History of hysterectomy (~2002) 2002 Previous section 1997 & 1998 Family History Family History Father Family history of malignant neoplasm Family history of lung cancer Family history of lymphoma Family history of malignant neoplasm of urinary bladder Diabetes mellitus Hypertension Heart problem Sibling Family history of malignant neoplasm of cervix Family history of Hodgkin's lymphoma Breast cancer Diabetes mellitus Hypertension Depression with anxiety Grandparent Cerebrovascular accident Breast cancer Mother Hypertension Other Family history of cardiovascular disease Social History Social History Smoking packs per day: 0.5 Smoking cigarettes per day: 10.0 Years smoked: 10 Smoking pack-years: 5.00 Smoking status: Former smoker Tobacco type: cigarettes Second hand tobacco smoke exposure: No Smoking end date: 09/02/12 Additional smoking assessment comments: 1ppw x10 years Alcohol intake: former Substance use: never Substance use type: does not use Do You Feel Safe in your Home?: Yes Lack of Transportation: No Lack of Food: Never True Current Housing: I Have Housing Concerned About Future Housing: No Difficulty Paying Gas/Electric Bills: No Difficulty Paying for Meds: No Currently Unemployed: No Education: High School Diploma/GED Difficulty w/ Childcare or Family Care: No Living arrangements: with family Additional living arrangements comments: Occupation/Education: occupation 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 Gender identity (if verbalized by the patient): Female Sexual Orientation (if Verbalized by the Patient): Straight or Heterosexual Spiritual care concerns: No Meds Home Medications and Allergies Home Medications ?Medication ?Instructions ?Recorded ?Confirmed ?Type Advanced Probiotic 2 ml PO DAILY 11/08/23 03/18/25 History pantoprazole 40 mg tablet,delayed See Rx Instructions .Route 06/30/24 03/18/25 Rx release .COMPLEX #90 tabs cholecalciferol (vitamin D3) 1,250 See Rx Instructions .Route 08/18/24 03/18/25 Rx mcg (50,000 unit) capsule .COMPLEX #12 caps cyanocobalamin (vitamin B-12) 1,000 mcg PO DAILY 09/16/24 03/18/25 History 1,000 mcg capsule fluoxetine 40 mg capsule See Rx Instructions .Route 12/25/24 03/18/25 Rx .COMPLEX #90 caps linaclotide 145 mcg capsule 145 mcg PO DAILY PRN constipation 02/19/25 03/04/25 History (Linzess) metoprolol succinate 25 mg 25 mg PO EVERY OTHER DAY 02/19/25 03/18/25 History tablet,extended release 24 hr rosuvastatin 10 mg tablet See Rx Instructions .Route .COMPLEX 02/19/25 03/18/25 History semaglutide 1 mg/dose (4 mg/3 mL) 1 mg (0.75 mL) subcut WEEKLY #9 mL 02/26/25 03/04/25 Rx subcutaneous pen injector (Ozempic) metformin 500 mg tablet 500 mg PO DAILY 03/04/25 03/18/25 History Allergies Allergy/AdvReac Type Severity Reaction Status Date / Time erythromycin base Allergy Severe Hives Verified 03/18/25 11:05 Vital Signs Vital Signs - 24 hr 03/18/25 11:06 Temperature 97.1 F L Pulse Rate 75 Respiratory Rate 16 Blood Pressure 117/78 Pulse Oximetry 100 Oxygen Delivery Room Air Exam Const: General: comfortable and no acute distress HENMT: Face/Nose/Sinus: Normal nares present Eyes: General: appearance normal, both eyes and all related structures Neck: Neck: no JVD Resp: Auscultation: clear to auscultation bilaterally Cardio: Rate: regular rate Rhythm: regular rhythm GI: Inspection: non-distended GI Palp: Yes Soft to palpation Skin: General skin exam: normal color Neuro: Speech: normal speech Extrem: General: normal to inspection Psych: Mental Status: mental status grossly normal Assessment and Plan Assessment and plan (1) GERD (gastroesophageal reflux disease): Qualifiers: Esophagitis presence: without esophagitis Qualified Code(s): K21.9 - Gastro-esophageal reflux disease without esophagitis Code(s): K21.9 - Gastro-esophageal reflux disease without esophagitis Status: Acute Assessment and Plan: egd with bx
--- NOTE | 2025-03-18 12:08 | S_PTH ---
PATIENT: Marta Piper LOC: [facility]#:[id number] AGE/SX: 54/F ROOM: RE03/18/[address]: Carlin Khanna MD : 1970 BED: DIS: 03/18/2025 SPEC #: [id number] RECD: 03/18/25 13:47 STATUS: ISMA REQ #: [id number] MASSIMO: 03/18/25 12:[address]: Carlin Khanna DEPT: [facility] Surgical RECD BY: Mattie Kevin ENTERED: 03/18/25 13:47 SP TYPE: Surgical OTHR DR: Guido Tillman MD Tissues: A - Esophageal Biopsy B - Gastric Biopsy Procedures: Hematoxylin and Eosin Stain Gross and Microscopic Level 4
[2025-03-18 12:13] VITALS: BP 148/67; PULSE 55; RESP 17; O2SAT 99
[2025-03-18 12:23] VITALS: BP 119/74; PULSE 75; RESP 13; O2SAT 100
[2025-03-18 12:33] VITALS: BP 120/72; PULSE 77; RESP 18; O2SAT 100
== END 2025-03-18 12:50 | disposition home or self-care (01) ==
PROVIDERS: PCP Emergency Medicine; Referring Provider Nurse Practitioner Family; Visit Provider Internal Medicine Gastroenterology
PROC: 0DJ08ZZ Inspection of Upper Intestinal Tract, Via Natural or Artificial Opening Endoscopic (ICD-10-PCS; CPT 43239; principal; 2025-03-18 14:15)
DX: K21.9 Gastro-esophageal reflux disease without esophagitis (principal); K31.7 Polyp of stomach and duodenum; Z87.891 Personal history of nicotine dependence; Z79.84 Long term (current) use of oral hypoglycemic drugs; Z79.85 Long-term (current) use of injectable non-insulin antidiabetic drugs; E66.9 Obesity, unspecified; Z68.30 Body mass index [BMI] 30.0-30.9, adult
CPT/HCPCS: 43239; 82948; 88305; J2003; J2704; J7120

== ENCOUNTER 2025-06-15 13:29 | Outpatient (CLI) | payer OTHER, SELFPAY ==
--- NOTE | ~2025-06-15 | XR_ITS ---
EXAMINATION: XR shoulder LT min 2V, 06/15/2025 13:40 CDT HISTORY: M25.512 - Pain in lft shoulder X1 WEEK, PAIN POSTERIOR, NKI COMPARISON: No comparisons available. Findings: No acute fracture or malalignment. No significant degenerative changes. Soft tissues unremarkable. Impression: No acute fracture or malalignment. Reviewed, dictated and finalized at location P. Impression: No acute fracture or malalignment.
--- OUTSIDE RECORDS SUMMARY | 2025-06-15 15:27 | XMS_ITS | Clinical Summary ---
Author Organization [facility] [address] Address [address] [place] [id number] Care Team Providers Care Key Holder Name Role Phone Guido Tillman MD Primary Care Provide r SenCarmen sanchez DO Unavailable [phone] Allergies Active Allergy Reactions Criticality Noted Date Comments Erythromycin Medications FLUoxetine (PROzac) 40 mg capsule Take 1 capsule (40 mg total) by mouth daily 3 10/07/19 19 Active rosuvastatin (CRESTOR) 10 mg tablet 06/05/20 22 Active metoprolol XL (TOPROL-XL) 25 mg extended release tablet metoprolol succinate ER 25 mg tablet,extende d release [address] (PROTONIX) 40 mg EC tablet Take 1 tablet (40 mg total) by mouth every morning 09/08/19 23 Active INV-[facility] vitamin D3, cholecalcifero l, (/L S1293) 50,000 unit capsule Active Y24-zixveuuchr ahydrofolate-B 6 1,000mcg-680mc g DFE-1.5 mg tablet,chewabl e Active magnesium glycinate 120 mg capsule Active Lactobacillus no.46/B.animal is (PROBIOTIC-10 ORAL) Active estradioL (Estrace) 0.01 % (0.1 mg/gram) vaginal cream Insert 1/2 gram with applicator into 3 times per week. Dispense three month supply, one year refills. 3 g 3 05/24/20 25 Active olmesartan (BENICAR) 20 mg tablet Take 20 mg by mouth daily. 4 10/07/19 19 025 Discontinued spironolactone (ALDACTONE) 25 mg tablet Take 25 mg by mouth daily. 025 Discontinued estradioL (ESTRACE) 0.01 % (0.1 mg/gram) vaginal cream PLEASE SEE ATTACHED FOR DETAILED DIRECTIONS 06/04/20 23 025 Discontinued benzonatate (TESSALON) 100 mg capsuleIndicat ions:Cough Take 1 capsule (100 mg total) by mouth 3 (three) times a day as needed for cough 21 capsule 08/12/20 23 025 Discontinued estradioL (Estrace) 0.01 % (0.1 mg/gram) vaginal cream Insert 1/2 gram with applicator into 3 times per week. Dispense three month supply, one year refills. 3 g 3 05/24/20 25 025 Discontinued Active Problems Problem Noted Date Diagnosed Date Abnormal mammogram 10/31/2018 Cervicalgia 03/01/2014 Knee pain 01/15/2014 Pain in pelvis 03/04/2013 Lumbago 02/26/2013 Arthralgia of hip 02/26/2013 Encounters Date Type Department Care Team Description 05/24/2025 3:10 PM CDT Office Visit [facility] [address] [facility] [place] [phone] Seble Garcia NP Vaginal atrophy (Primary Dx); Screening for osteoporosis; Hormone replacement therapy (postmenopausal) from Last 3 Months Surgical History Surgery Date Site/Laterality Comments SECTION 1997, 1998 HYSTERECTOMY 09/02/2002 - 09/01/2003 ANKLE SURGERY 09/02/2005 - 09/01/2006 SHOULDER ARTHROSCOPY 09/02/2016 - 09/01/2017 BLADDER SUSPENSION 09/02/2016 - 09/01/2017 Medical History Medical History Date Comments Personal history of other di seases of the circulatory system History of hypertension - (A dded by MARCIO Bolden) Hypertension Chronic headaches Depression Overweight Arthritis Family [...] = 0.6 oz pur e alcohol) socially Comments No Sex and Gender Information Value Date Recorded Sex Assigned at Not on file Legal Sex Female 4:40 AM STOCK SPECULATOR Gender Identity Female 05/20/2025 9:53 AM CDT Sexual Orientation Choose not to disclose 2024 9:53 AM CDT Obstetrics History Para Term AB IAB SAB Ectopic Multiple Livin g Live Births 2 2 2 2 Date Outcome GA Total Labor Labor/2nd/3rd Weight Sex Type Anes PTL Blossom A1 A5 Name Clin Term Term Last Filed Vital Signs Vital Sign Reading Time Taken Comments Blood Pressure 126/88 05/24/2025 3:03 PM CDT Pulse 72 08/12/2023 10:09 AM STOCK SPECULATOR Temperature 36.9 C (98.4 F) 08/12/2023 10:09 AM STOCK SPECULATOR Respiratory Rate 20 08/12/2023 10:09 AM STOCK SPECULATOR Oxygen Saturation 98% 08/12/2023 10:09 AM STOCK SPECULATOR Inhaled Oxygen Concentration - - Weight 74.8 kg (165 lb) 05/24/2025 3:03 PM CDT Height 157.5 cm (5' 2) 05/24/2025 3:03 PM CDT Body Mass Index 30.18 05/24/2025 3:03 PM CDT Plan of Treatment Health Maintenance Due Date Last Done Comments Breast Cancer Screening-Mammogram 1970 Colon Cancer Screening-Colonoscopy 1970 Depression Screening 1970 Hepatitis C Screening 1970 DTaP/Tdap/Td Vaccine (1 - Tdap) 1981 Hepatitis B Screening 1988 Regular Well Visit/Exam 18-64 1988 Zoster Vaccine (1 of 2) 2020 Covid-19 Vaccine (3 2024-2 6 season) 2025 12/09/2020, 11/18/2020 Influenza Vaccine (#1) 2025 Pneumococcal vaccine <65 Aged Out No longer eligible based on patient's age to complete this topic Insurance [employer] OPEN ACCESS [facility] HEALTH BENEFIT PLAN [facility] HEALTH BENEFIT PLAN [facility] OPEN ACCESS Care Teams Key Holder Relationship Specialty Start Date End Date Guido Tillman MD [address] [place] [address] PCP - General Emergency Medicine 06/07/22 [place] [address] [place] [address] Consulting Physician Obstetrics and Gynecology 05/24/25
--- OUTSIDE RECORDS SUMMARY | 2025-06-15 15:27 | XMS_ITS | Clinical Summary ---
Author Organization [facility] Address [address] [place] [address] Care Team Providers Care Housetrailer Servicer Name Role Phone Guido Tillman MD Primary Care Provider [phone] Source Comments [facility],non-owned Affiliates and Associated Physician Practices is amultiple site organization consisting of ambulatory clinics and hospital sitesin [place], [place], [place] and [place]. This disclosure is being madepursuant to the Care Everywhere program and may not contain all information available regarding this patient. Last updated 18.[facility] Allergies Active Allergy Reactions Criticality Noted Date Comments Erythromycin Other 08/03/2024 Medications * Be aware that medications may not be up to date on this document. Alwaysverify current medications with the patient. Cholecalcifero l (vitamin D3) 1.25 MG (73284 UT) capsule TAKE ONE CAPSULE (1250 MCG) [...] (0.75 ML) SUBCUTANEOUSLY WEEKLY FOR 4 WEEKS 4 Active Social History Tobacco Use Types [...] 2020 ZOSTER VACCINE (1 of 2) 2020 DEPRESSION SCREENING 09/02/2024 COVID-19 VACCINE (1 - 2023-2 5 season) 2025 INFLUENZA VACCINE (#1) 2025 HIB VACCINE Aged [...] / Payer (Ef fective for All Dates) Name:Marta Piper Member ID:Not on file Relation to Subscriber:Not on file Name:MARTA PIPER Subscriber ID:Not on file Address: [place] [address] Payer ID:Not on file Group ID:Not on file Type:Self Pay [facility]ANCE Member Subscriber Plan / Payer (Ef fective for All Dates) Name:Flores Marta Kindra Member ID:Not on file Relation to Subscriber:Not on file Name:ZEFERINOOZZYMARTA Abebe Subscriber ID:Not on file Address: [address] [place] [address] Payer ID:Not on file Group ID:Not on file Type:Self Pay Address: [place], [place] [employer] SELF PAY NO INSURANCE Member Subscriber Plan / Payer (Ef fective for All Dates) Name:Marta Piper Member ID:Not on file Relation to Subscriber:Not on file Name:ZEFERINOZORAIDAMARTA Subscriber ID:Not on file Address: [address] [place] [address] Payer ID:Not on file Group ID:Not on file Type:Self Pay Address: [place], [place] Care Teams Housetrailer Servicer Relationship Specialty Start Date End Date Guido Tillman MD [address] [facility] [address] [place] [address] PCP - General Internal Medicine 07/02/24
== END 2025-06-15 13:30 | disposition home or self-care (01) ==
PROVIDERS: PCP Emergency Medicine; Visit Provider Emergency Medicine
DX: M25.512 Pain in left shoulder (principal)
CPT/HCPCS: 73030

== ENCOUNTER 2025-07-16 10:52 | Outpatient (CLI) | payer OTHER, SELFPAY ==
--- NOTE | ~2025-07-16 | CT_ITS ---
EXAM/PROCEDURE: CT facial bones wo con HISTORY: injury of face x 1 week ago, bruising, swelling right cheek COMPARISON: None available. TECHNIQUE: Facial bone CT performed FINDINGS: Edematous or infiltrative appearing changes in the right facial subcutaneous soft tissues with no severe soft tissue swelling or hematoma seen. Bones appear intact. Orbital structures appear symmetric and within normal limits. Paranasal sinuses all are well aerated as are the ethmoid air cells, middle ear cavities and mastoid air cells. IMPRESSION: No fracture lucency. Reviewed, dictated and finalized at location A. ONAL DIRECTOR OF ADMISSIONS IMPRESSION: No fracture lucency.
== END 2025-07-16 10:53 | disposition home or self-care (01) ==
LOC: MICIMG 10:53
PROVIDERS: PCP Emergency Medicine; Visit Provider Emergency Medicine
DX: S09.93XA Unspecified injury of face, initial encounter (principal); X58.XXXA Exposure to other specified factors, initial encounter
CPT/HCPCS: 70486